=== PATIENT | female | born 1990 | race Caucasian/White ===

== ENCOUNTER 2020-08-26 09:38 | Emergency (ER) | payer OTHER, SELFPAY ==
[2020-08-26] VITALS (7 sets, daily range): BP systolic 100–144; BP diastolic 63–106; PULSE 60–94; RESP 16–24; TEMP 36.4; O2SAT 89–99
--- NOTE | ~2020-08-26 | XR_ITS ---
EXAMINATION: XR chest 2V DATE: 08/26/2020 10:44 INDICATION: Chest pain. Lower limb edema. TECHNIQUE: PA and lateral views of the chest were obtained. COMPARISON: Chest radiograph dated 09/26/2016 FINDINGS: The lungs remain clear with no focal airspace opacities, pulmonary edema, pleural effusion or pneumot horax. The cardiomediastinal silhouette is normal. Mild thoracic spondylosis. Chronic mild anterior w edging of a lower thoracic vertebral body. IMPRESSION: 1. No acute cardiopulmonary disease. Reviewed, dictated and finalized at location B. F MEDICAL OFFICER
--- NOTE | 2020-08-26 10:18 | ECG_ITS ---
Measurements Intervals [place] Rate: 77 P: 47 CA: 169 QRS: 53 QRSD: 102 T: 64 QT: 357 QTc: 405 Interpretive Statements SINUS RHYTHM WITH SINUS ARRHYTHMIA EARLY PRECORDIAL R/S TRANSITION LOW QRS VOLTAGE IN PRECORDIAL LEADS BASELINE WANDER- II, III BORDERLINE ECG Electronically Signed On 08-26-2020 11:12:51 SURGICAL TECHNOLOGY INSTRUCTOR by Gabriel Garcia D.O.
--- NOTE | 2020-08-26 10:24 | ED.SOB ---
HPI - SOB/Dyspnea General Chief Complaint: Shortness of Breath/Dyspnea Stated Complaint: sob, leg swellling, Time Seen by Provider: 08/26/20 10:06 Source: patient Mode of arrival: ambulatory Limitations: no limitations History of Present Illness HPI Narrative: This is a 30-year-old female that presents to the emergency department for right lower extremity pain and swelling. Reports she has had these symptoms over the last 4 years. Reports she gets frequent migraines. Reports she gets swelling in her face and in her lower extremities. Reports she has a lot of nausea. She gets intermittent sharp chest pains and feels short of breath. Also reports she gets frequent UTIs. She has been seen by specialists for her complaints. Reports she was diagnosed with angioedema. Reports she recently noted swelling and redness of her right lower extremity which prompted her to be seen today. Denies fever. Related Data Allergies Allergy/AdvReac Type Severity Reaction Status Date / Time penicillin G Allergy Mild rash, hives Verified 07/15/17 19:56 Review of Systems Review of Systems: Narrative: CONSTITUTIONAL: Denies fever CARDIOVASCULAR: Reports chest pain, and edema. RESPIRATORY: Reports dyspnea. Denies cough GASTROINTESTINAL: Reports nausea and vomiting. Denies abdominal pain, or diarrhea. GENITOURINARY: Denies dysuria or hematuria. SKIN: Reports erythema MUSCULOSKELETAL: Reports back pain, joint pain, and myalgia. NEUROLOGIC: Reports headache. Denies numbness, or weakness. All systems reviewed & are unremarkable except as noted in HPI and below PMFSH Past Medical History Medical History (Updated 08/26/20 @ 12:26 by Concetta Chavarria PA-C) History of angioedema Social History Social History (Updated 08/26/20 @ 10:28 by Concetta Chavarria PA-C) Smoking status: Current every day smoker Gender identity (if verbalized by the patient): Female Exam Narrative: Exam Narrative: GENERAL: Well-appearing, obese, and in no acute distress. HEAD: Normocephalic, atraumatic. EYES: PERRLA and EOMI. ENT: Nares clear, no rhinorrhea or epistaxis. Mucous membranes moist. Oropharynx without tonsillar hypertrophy exudate or other lesions. Bilateral TMs pearly quintana non-bulging NECK: Supple. No adenopathy or masses. CHEST: Clear to auscultation. No respiratory distress. No wheezes rales or rhonchi HEART: Regular rate and rhythm. No murmur heard. Normal peripheral pulses. ABDOMEN: Soft, nontender, nondistended, normal active bowel sounds. No CVA tenderness BACK: No midline spinal tenderness EXTREMITIES: Normal range of motion. Normal DP pulses. Normal sensation. Right lower extremity with mild edema with small area of erythema on the martinez. Strength equal in bilateral upper and lower extremities (5/5) SKIN: Warm, dry, no rash. NEURO: No focal deficits. Alert and oriented x3. Cranial nerves II through XII grossly intact PSYCH: Normal mood and affect Course Vital Signs Vital signs: Vital Signs Temperature 97.5 F L 08/26/20 09:47 Pulse Rate 94 08/26/20 09:47 Respiratory Rate 18 08/26/20 09:47 Blood Pressure 144/87 H 08/26/20 09:47 Pulse Oximetry 99 08/26/20 09:47 Temperature 97.5 F L 08/26/20 09:47 Pulse Rate 64 08/26/20 11:31 Respiratory Rate 18 08/26/20 11:31 Blood Pressure 111/63 08/26/20 11:31 Pulse Oximetry 97 08/26/20 11:31 MDM - SOB/Dyspnea MDM Narrative Medical decision making narrative: Patient presents to the emergency department with multiple complaints. Reported chest pain, shortness of breath, nausea, and lower extremity edema. All which apparently have been ongoing over the last 4 years. She is afebrile and nontoxic-appearing. Vitals are stable. Blood pressure mildly elevated on arrival, this normalized without intervention. CBC and metabolic panel without concerning findings. BNP is not elevated. Troponin is negative. D-dimer is not elevated. UA with evidence of possible urinary tract inf
[2020-08-26 10:39] LABS: Basophils Absolute Auto 0.1 K/mm3 (0.0-0.1); Basophils Percent Auto 0.9 % (0.2-1.2); Eosinophils Absolute Auto 0.7 K/mm3 (0-0.3); Eosinophils Percent Auto 7.3 % (0-4.4); Hemoglobin 14.2 g/dL (12.0-15.0); Immature Granulocyte Absolute 0.03 K/mm3 (0.00-0.031); Immature Granulocyte Percent A 0.3 % (0-0.5); Lymphocytes Absolute Auto 1.91 K/mm3 (0.9-3.2); Lymphocytes Percent Auto 21.5 % (18.3-44.2); Mean Corpuscular HGB Conc 33.8 g/dl (32-36); Mean Corpuscular Hemoglobin 29.9 pg (26-34); Mean Corpuscular Volume 88.4 fl (80-100); Mean Platelet Volume 9.9 fl (7.4-10.4); Monocytes Absolute Auto 0.6 K/mm3 (0.1-0.6); Monocytes Percent Auto 6.8 % (2.6-8.5); Neutrophils Absolute Auto 5.6 K/mm3 (1.3-6.7); Neutrophils Percent Auto 63.2 % (45.5-73.1); Platelet Count Result 293 k/mm3 (150-375); Red Blood Count 4.75 M/mm3 (4.2-5.4); Red Cell Distribution Width 13.5 % (11.5-14.5); White Blood Count 8.9 K/mm3 (4.5-10.0)
[2020-08-26 10:48] LABS: Prothrombin Time 13.3 Seconds (11.1-14.7)
[2020-08-26 10:49] LABS: Partial Thromboplastin Time 26.6 SECONDS (22.3-36.8)
[2020-08-26 10:51] LABS: D Dimer 0.34 ug/mL (<0.48)
[2020-08-26] MEDS: KETOROLAC 15 MG/ML VIAL (*BKC) IV PUSH (10:53)
[2020-08-26] MEDS: diphenhydrAMINE HCl INJ 50 MG/ML VIAL 25 MG IV PUSH (11:02)
[2020-08-26] MEDS: METOCLOPRAMIDE HCL INJ 10 MG/2 ML VIAL IV PUSH (11:02)
[2020-08-26 11:03] LABS: NT Pro B Type Natriuretic Pept 51 PG/ML (5-100); Troponin I < 0.012 ng/mL (0.000-0.034)
[2020-08-26 11:21] LABS: Alanine Aminotransferase 19 U/L (4-35); Alkaline Phosphatase 70 U/L (38-126); Anion Gap 5 mmol/L (8-16); Aspartate Amino Transferase 24 U/L (14-36); Bilirubin,Total 0.6 mg/dL (0.2-1.3); Blood Urea Nitrogen 22 mg/dL (7-17); CRP 1.4 mg/dL (<1.0); Calcium 8.8 mg/dL (8.4-10.2); Carbon Dioxide 29 mmol/L (22-30); Chloride 103 mmol/L (98-107); Estimated CRCL calculation 134 ml/min; Estimated Glomerular Filt Rate > 60; Glucose 90 mg/dL (65-105); Potassium 4.1 mmol/L (3.4-5.0); Sodium 137 mmol/L (137-145)
[2020-08-26 12:05] LABS: Add Urine Microscopic? YES; Appearance Urine Cloudy (Clear); Bacteria Urine Trace /hpf; Bilirubin Urine Negative (Negative); Blood Urine 1+ (Negative); Color Urine Yellow (Yellow); Glucose Urine UA Negative (Negative); Ketones Urine Negative (Negative); Leukocyte Esterase Ur Trace LEU/UL (Negative); Mucus Urine Few /lpf; Nitrate Urine Positive (Negative); Protein Urine 1+ mg/dL (Negative); RBC Urine 0-2 /hpf (0-2); Specific Grav Ur 1.026 (1.001-1.035); Squamous Epithelial Cell Urine Few /hpf (Few); Urobilinogen Urine Negative mg/dL (<2.0)
--- NOTE | 2020-08-26 12:21 | PC.NURSE ---
Called lab to add UC
== END 2020-08-26 12:45 | disposition home or self-care (01) ==
PROVIDERS: Physician Assistant; Emergency Provider Emergency Medicine; PCP Internal Medicine Gastroenterology
DX: L03.115 Cellulitis of right lower limb (principal); N30.00 Acute cystitis without hematuria; F17.200 Nicotine dependence, unspecified, uncomplicated; R94.31 Abnormal electrocardiogram [ECG] [EKG]
CPT/HCPCS: 36415; 71046; 80053; 81001; 81025; 83880; 84484; 85025; 85380; 85610; 85730; 86140; 87077; 87086; 87088; 87186; 93005; 96374; 96375; 99284; J0131; J1200; J1885; J2765

== ENCOUNTER 2020-11-10 15:16 | Emergency (ER) | payer OTHER, SELFPAY | END 2020-11-10 19:00 | disposition left against medical advice (07) | PROVIDERS: PCP Internal Medicine Gastroenterology | DX: Z53.21 Procedure and treatment not carried out due to patient leaving prior to being seen by health care provider (principal) | CPT/HCPCS: 99199 ==

== ENCOUNTER 2020-11-12 08:20 | Emergency (ER) | payer OTHER, SELFPAY ==
[2020-11-12] VITALS (20 sets, daily range): BP systolic 108–136; BP diastolic 86–98; PULSE 65–104; RESP 13–21; TEMP 36.4; O2SAT 93–99
--- NOTE | ~2020-11-12 | XR_ITS ---
EXAMINATION: XR chest 1V portable EXAM DATE: 11/12/2020 09:29 INDICATION: Shortness of breath with chest pain. TECHNIQUE: Portable AP frontal chest x-ray was obtained. Comparison is made to prior examination from 08/26/2020. FINDINGS: The lungs are clear. There are no pleural effusions. The cardiomediastinal silhouette is within normal limits. There is no pneumothorax suspected. The bones and soft tissues are unremarkab le. IMPRESSION: No acute cardiopulmonary findings. Reviewed, dictated and finalized at location A.
--- NOTE | ~2020-11-12 | CT_ITS ---
EXAMINATION: CTA chest PE protocol EXAM DATE: 11/12/2020 10:43 INDICATION: Chest pain with elevated d-dimer. TECHNIQUE: Spiral CTA of the chest (pulmonary arteries) was performed with 100 cc Omnipaque 350 intr avenous contrast injection. Images were acquired during the pulmonary arterial phase. Coronal maxi mum intensity projection 3D-reconstructions were created by the technologist on dedicated workstation . Axial, coronal and sagittal reformatted images were reviewed. The dose-length product (DLP) for t his examination was 736.040 mGy-cm. The exposure was tailored according to patient size (auto mA ex posure control), and iterative reconstruction (ASIR) was used as additional dose reduction technique. There is no prior study for comparison. FINDINGS: Pulmonary arteries are well opacified and without intraluminal filling defects. No thora cic aortic dissection. There are ill-defined peripheral groundglass opacities, involving both depend ent and nondependent portions of the lower lobes bilaterally. Possible COVID pneumonia. Other acute p ossibilities include influenza, pulmonary edema or hemorrhage. Some chronic processes that can have t his appearance include cryptogenic organizing pneumonia, desquamative interstitial pneumonia, nonspec ific interstitial pneumonia, drug toxicity, connective tissue disease. Please clinically correlate an d test as appropriate. IMPRESSION Patchy bilateral airspace disease suspicious for COVID-19 pneumonia. Clinical correlation . There are no pleural or pericardial effusions. Tracheobronchial tree is patent. There is no me diastinal, hilar or axillary lymphadenopathy. There is no pneumothorax. Heart normal in size. N o evidence of coronary arterial calcification. Upper abdomen is unremarkable. The bones are unrema rkable. IMPRESSION: 1. Lower lobe groundglass opacities, possible COVID pneumonia or other acute or chronic process as a kurt. 2. No pulmonary emboli. Reviewed, dictated and finalized at location A. IMPRESSION Patchy bilateral airspace disease suspicious for COVID-19 pneumonia . Clinical correlation. There are no pleural or pericardial effusions. Trach eobronchial tree is patent. There is no mediastinal, hilar or axillary lympha denopathy. There is no pneumothorax. Heart normal in size. No evidence of coronary arterial calcification. Upper abdomen is unremarkable. The bones a re unremarkable. IMPRESSION: 1. Lower lobe groundglass opacities, possible COVID pneumonia or other acute o r chronic process as above. 2. No pulmonary emboli.
--- NOTE | ~2020-11-12 | US_ITS ---
EXAMINATION: US venous doppler LE RT DATE: 11/12/2020 09:21 INDICATION: Right lower limb swelling. TECHNIQUE: Grayscale ultrasound images without and with compression and Doppler ultrasound images of the right lower extremity veins were obtained. COMPARISON: Ultrasound 09/28/2016 FINDINGS: The visualized portions of right common femoral vein, profunda (deep) femoral vein, femoral vein, pop liteal vein, peroneal veins, posterior tibial veins, and greater saphenous vein outflow are patent. IMPRESSION: 1. No deep venous thrombosis. Reviewed, dictated and finalized at location A.
--- NOTE | 2020-11-12 08:32 | ECG_ITS ---
Measurements Intervals [place] Rate: 99 P: 57 UT: 148 QRS: 52 QRSD: 91 T: 29 QT: 308 QTc: 395 Interpretive Statements SINUS RHYTHM WITH SINUS ARRHYTHMIA BASELINE ARTIFACT- III, AVL, AVF NORMAL ECG Electronically Signed On 11-12-2020 9:32:54 CDT by Gabriel Garcia D.O.
--- NOTE | 2020-11-12 08:34 | ED.GENADULT ---
HPI - General Adult General Chief complaint: Chest Pain Stated complaint: CP Time Seen by Provider: 11/12/20 08:21 Source: patient Mode of arrival: ambulatory Limitations: no limitations History of Present Illness HPI narrative: This is a 30 year old female with history of asthma, anxiety, and angioedema who presents for evaluation of multiple complaints. She reports she developed intermittent sharp left sternal chest pain x 2 days. This pain is nonradiating. She also reports sob, nausea, vomiting, diarrhea. She denies any chest trauma. Her pain is worse with inspiration and walking around. She denies fever, chills, cough. She has right lower extremity swelling for months. She reports she was evaluated in ER at it's onset, and she was diagnosed with cellulitis. She states her PCP thought is was due to her angioedema. Related Data Allergies Allergy/AdvReac Type Severity Reaction Status Date / Time penicillin G Allergy Mild rash, hives Verified 07/15/17 19:56 Review of Systems Review of Systems: All systems reviewed & are unremarkable except as noted in HPI and below Constitutional: Constitutional: Denies chills and Denies fever(s) Cardiovascular: Cardiovascular: Reports chest pain and Denies radiating jaw, neck or arm pain Respiratory: Respiratory: Denies cough and Reports dyspnea Gastrointestinal: Gastrointestinal: Reports abdominal pain, Reports diarrhea, Reports nausea and Reports vomiting Psychiatric: Psychiatric: Reports anxiety PMFSH Past Medical History Medical History (Updated 11/12/20 @ 11:34 by Jessica Medel MD) Anxiety Asthma History of angioedema Surgical History Surgical History (Updated 11/12/20 @ 08:35 by Jessica Medel MD) H/O section Social History Social History (Updated 11/12/20 @ 08:35 by Jessica Medel MD) Smoking status: Current every day smoker Alcohol intake: current Substance use: current Substance use type: marijuana Gender identity (if verbalized by the patient): Female Exam Const: General: no acute distress and alert Orientation/consciousness: patient oriented x3 Eyes: EOM: EOMs intact bilaterally Chest: Chest palpation & inspection: normal inspection of the chest Resp: Effort & Inspection: normal respiratory effort and no retractions Auscultation: clear to auscultation bilaterally Cardio: Rate: regular rate Rhythm: regular rhythm Heart sounds: no murmurs GI: GI Palp: Yes Soft to palpation, Yes Tenderness to palpation present (GI) (epigastric) and No Guarding due to palpation present (GI) Auscultation: normal bowel sounds Back/Spine/Pelvis: Back: no CVA tenderness Skin: General skin exam: normal color Rashes: no rashes Neuro: General: patient oriented x3, moves all extremities and CN's II-XI intact bilaterally Course Reevaluation(s) Reevaluation #1: I discussed with patient that CT scan is concerning for pneumonia and covid. She became upset ripping her wires off. I tried to explain that she will need to be tested for covid again. She states she does not believe in covid and refuses to be tested. 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 She states she does not believe in the vaccine either. Date: 11/12/20 Time: 11:20 Reevaluation #2: Nursing staff reports patient wants to leave [place]. Date: 11/12/20 Time: 11:34 Vital Signs Vital signs: Vital Signs Temperature 97.6 F 11/12/20 08:24 Pulse Rate 99 11/12/20 08:24 Respiratory Rate 20 11/12/20 08:24 Blood Pressure 116/86 11/12/20 08:24 Pulse Oximetry 94 11/12/20 08:24 Temperature 97.6 F 11/12/20 08:24 Pulse Rate 75 11/12/20 11:19 Respiratory Rate 14 11/12/20 11:19 Blood Pressure 132/88 11/12/20 11:19 Pulse Oximetry 98 11/12/20 11:19 Medical Decision Making Vital Signs Vital Signs: Vital Signs Temperature 97.6 F 11/12/20 08:24 Pulse Rate 99 11/12/20 08:24 Respiratory Rate
[2020-11-12 08:53] LABS: Basophils Percent Auto 0.4 % (0.2-1.2); Eosinophils Absolute Auto 0.2 K/mm3 (0-0.3); Eosinophils Percent Auto 2.2 % (0-4.4); Hematocrit 42.9 % (37.0-47.0); Hemoglobin 14.6 g/dL (12.0-15.0); Immature Granulocyte Absolute 0.02 K/mm3 (0.00-0.031); Immature Granulocyte Percent A 0.2 % (0-0.5); Lymphocytes Absolute Auto 1.14 K/mm3 (0.9-3.2); Lymphocytes Percent Auto 11.9 % (18.3-44.2); Mean Corpuscular Hemoglobin 30.2 pg (26-34); Mean Corpuscular Volume 88.8 fl (80-100); Monocytes Absolute Auto 0.6 K/mm3 (0.1-0.6); Monocytes Percent Auto 5.9 % (2.6-8.5); Neutrophils Absolute Auto 7.6 K/mm3 (1.3-6.7); Neutrophils Percent Auto 79.4 % (45.5-73.1); Platelet Count Result 296 k/mm3 (150-375); Red Blood Count 4.83 M/mm3 (4.2-5.4); Red Cell Distribution Width 13.6 % (11.5-14.5); White Blood Count 9.6 K/mm3 (4.5-10.0)
[2020-11-12] MEDS: PANTOPRAZOLE SODIUM IV 40 MG VIAL IV PUSH (08:55)
[2020-11-12] MEDS: ONDANSETRON INJ 4 MG/2 ML VIAL IV PUSH (08:55)
[2020-11-12] MEDS: ASPIRIN 81 MG CHEWABLE TABLET 324 MG PO (08:55)
[2020-11-12 09:01] LABS: INR 0.9; Partial Thromboplastin Time 24.9 SECONDS (22.3-36.8)
[2020-11-12 09:02] LABS: Alanine Aminotransferase 15 U/L (4-35); Alkaline Phosphatase 70 U/L (38-126); Aspartate Amino Transferase 19 U/L (14-36); Bilirubin,Total 0.4 mg/dL (0.2-1.3); Lipase 50 U/L (23-300)
[2020-11-12 09:04] LABS: D Dimer 2.37 ug/mL (<0.48)
[2020-11-12 09:05] LABS: Add Urine Microscopic? YES; Appearance Urine Cloudy (Clear); Bacteria Urine 1+ /hpf; Bilirubin Urine Negative (Negative); Blood Urine 3+ (Negative); Color Urine Yellow (Yellow); Glucose Urine UA Negative (Negative); Ketones Urine Negative (Negative); Leukocyte Esterase Ur 2+ LEU/UL (Negative); Mucus Urine Heavy /lpf; Nitrate Urine Negative (Negative); Protein Urine 2+ mg/dL (Negative); Specific Grav Ur 1.028 (1.001-1.035); Squamous Epithelial Cell Urine Many /hpf (Few); Urobilinogen Urine Negative mg/dL (<2.0); WBC Urine 31-50 /hpf
[2020-11-12 09:07] LABS: Anion Gap 7 mmol/L (8-16); Blood Urea Nitrogen 25 mg/dL (7-17); Calcium 8.7 mg/dL (8.4-10.2); Carbon Dioxide 24 mmol/L (22-30); Chloride 108 mmol/L (98-107); Estimated CRCL calculation 103 ml/min; Estimated Glomerular Filt Rate > 60; Glucose 106 mg/dL (65-105); Potassium 3.7 mmol/L (3.4-5.0); Sodium 139 mmol/L (137-145)
[2020-11-12 09:18] LABS: Troponin I < 0.012 ng/mL (0.000-0.034)
--- NOTE | 2020-11-12 11:24 | PC.NURSE ---
Pt refusing to be COVID or influenze tested stating that I dont believe I have COVID I just have pneumonia. Everything is COVID these days, you can come in with a toothache and they tell you its COVID. Pt states that she doesnt believe her test results, doesnt understand why the tests she had were done and wants to leave AMA. RN explained to patient her lab results and elevated d-dimer which means she is high likely for a blood clot. This was the reason she got a chest CT which found her pneumonia that the radiologist read as suspicious for COVID 19. HEDY Medel notified.
== END 2020-11-12 11:43 | disposition left against medical advice (07) ==
PROVIDERS: Emergency Provider General Practice; PCP Internal Medicine Gastroenterology
DX: J18.9 Pneumonia, unspecified organism (principal); R07.89 Other chest pain; Z20.822 Contact with and (suspected) exposure to COVID-19; J45.909 Unspecified asthma, uncomplicated; F17.200 Nicotine dependence, unspecified, uncomplicated
CPT/HCPCS: 36415; 71045; 71275; 80048; 80076; 81001; 81025; 83690; 84484; 85025; 85380; 85610; 85730; 87077; 87086; 87088; 87186; 93005; 93971; 96374; 96375; 99284; A9270; C9113; J2405; Q9967

== ENCOUNTER 2022-07-05 01:50 | Emergency (ER) | payer OTHER, SELFPAY ==
[2022-07-05 01:55] VITALS: BP 134/84; PULSE 72; RESP 16; TEMP 36.3; O2SAT 100
--- NOTE | 2022-07-05 02:59 | ED.DENTAL ---
HPI - Dental/Oral General Chief complaint: Dental/Oral Stated complaint: dental pain Time Seen by Provider: 07/05/22 02:11 Source: patient Mode of arrival: ambulatory Limitations: no limitations History of Present Illness HPI Narrative: 32-year-old female presents today with complaints of right upper tooth pain that she noted about 2 days ago. Patient states the pain is worse today. Patient says she has intermittently had issues with this tooth but recently had it cleaned at the pain today was so severe that she cannot take anymore. Patient denies any drainage. 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 Patient was seen at [facility] for this. Patient currently states the swelling to the right side of her face is minimal and is getting better. MD Complaint: tooth pain Teeth map: 1. Tenderness with palpation, no drainage noted, no abscess, no fluctuant area, erythema noted to the gums. Related Data Allergies Allergy/AdvReac Type Severity Reaction Status Date / Time No Known Allergies Allergy Verified 07/05/22 01:58 Review of Systems Review of Systems: CONSTITUTIONAL: Denies fever, chills, or sweats. EYES: Denies visual changes, redness, or discharge. ENT: Right upper tooth pain. Denies rhinorrhea, congestion, sore throat, or otalgia. CARDIOVASCULAR: Denies chest pain, palpitations, or edema. RESPIRATORY: Denies cough or dyspnea. GASTROINTESTINAL: Denies abdominal pain, nausea, vomiting, or diarrhea. GENITOURINARY: Denies dysuria or hematuria. SKIN: Denies rash or itching. MUSCULOSKELETAL: Denies back pain, joint pain, or myalgia. NEUROLOGIC: Denies headache, numbness, dizziness, or weakness. PSYCHIATRIC: Denies anxiety or depression. [facility] Past Medical History Medical History Anxiety Asthma History of angioedema Surgical History Surgical History H/O section Social History Social History Smoking status: Current every day smoker Alcohol intake: current Substance use: current Substance use type: marijuana Gender identity (if verbalized by the patient): Female Exam Narrative: GENERAL: Well-appearing, well-nourished, and in no acute distress. HEAD: Normocephalic, atraumatic. EYES: PERRLA and EOMI. ENT: See HPI note. Nares clear, no rhinorrhea or epistaxis. Mucous membranes moist. Oropharynx without tonsillar hypertrophy exudate or other lesions. Bilateral TMs pearly quintana nonbulging NECK: Supple. No adenopathy or masses. No carotid bruits or JVD CHEST: Clear to auscultation. No respiratory distress. No wheezes rales or rhonchi HEART: Regular rate and rhythm. No murmur heard. Normal peripheral pulses. Course Vital Signs Vital signs: Vital Signs Temperature 97.3 F L 07/05/22 01:55 Pulse Rate 72 07/05/22 01:55 Respiratory Rate 16 07/05/22 01:55 Blood Pressure 134/84 07/05/22 01:55 Pulse Oximetry 100 07/05/22 01:55 Oxygen Delivery Room Air 07/05/22 01:55 Temperature 97.3 F L 07/05/22 01:55 Pulse Rate 72 07/05/22 01:55 Respiratory Rate 16 07/05/22 01:55 Blood Pressure 134/84 07/05/22 01:55 Pulse Oximetry 100 07/05/22 01:55 Oxygen Delivery Room Air 07/05/22 01:55 MDM - Dental/Oral Differential Diagnosis Differential diagnosis: Likely gingival abscess, dental caries, toothache, dental abscess and fracture of tooth Medical Records Attestation: I reviewed the patient's medical records. Discharge Plan Discharge Clinical Impression: Toothache Patient Disposition: Home, Self-Care Condition: Stable Instructions: Antibiotic Form, Toothache (ED) Additional Instructions: Please take antibiotics as prescribed. Tylenol or ibuprofen as needed for pain or fever. Make sure you take them with food. Return with any new or worsening con
[2022-07-05] MEDS: FAMOTIDINE 20 MG TABLET PO (03:19)
[2022-07-05] MEDS: HYDROcodone/acetaminophen (*CRX) 5-325 MG TABLET 1 TAB PO (03:19)
[2022-07-05] MEDS: AMOXICILLIN/CLAVULANATE K 875-125 MG TAB 1 TABLET PO (03:19)
[2022-07-05] MEDS: ONDANSETRON HCL ODT 4 MG TABLET PO (03:19)
== END 2022-07-05 03:33 | disposition home or self-care (01) ==
PROVIDERS: Emergency Provider Nurse Practitioner Family; PCP Internal Medicine Gastroenterology
DX: K08.89 Other specified disorders of teeth and supporting structures (principal); J45.909 Unspecified asthma, uncomplicated; F17.200 Nicotine dependence, unspecified, uncomplicated
CPT/HCPCS: 99283; A9270

== ENCOUNTER 2025-01-05 06:02 | Emergency (ER) | payer OTHER, SELFPAY ==
--- NOTE | ~2025-01-05 | XR_ITS ---
Clinical Indication: Shortness of breath PA and lateral views of the chest: Comparison: 11/12/2020 Findings: The lungs are clear, without evidence of focal consolidation or pleural effusion. Cardiome diastinal silhouette is within normal limits. Bones and soft tissues are unremarkable. Impression: Normal chest. Reviewed, dictated and finalized at location . Impression: Normal chest.
--- OUTSIDE RECORDS SUMMARY | 2025-01-05 06:05 | XMS_ITS | Data Portability ---
Author Organization [facility] MARGIEMady Sanonia Cirilo Address [address] [place] [address] Care Team Providers Care Haulage Boss Name Role Phone FRANK GOMEZ Primary Care Provider Unavailabl e Assessment Encounter Date Assessment Date Assessment LastModified by Organization Details LastModified Time 03/04/2021 03/04/2021 Chase CHOWDARY mwasserman Not available 03/04/2021 00:47:30 09/24/2021 09/24/2021 EPI Mayorga Not available 09/24/2021 16:50:48 Plan of Treatment Reminders Order Date Submit Date Provider Last Modified By Organization Details Last Modified Time Details Appointments None recorded . Lab pregnanc y test, urine 2021 022 In-Office Order, Internal Use Only DO Not Attach Compendium DO Not Attach Compendium, Do Not Delete/merge, [id number] 15:41:03 HCG, intact + beta subunit, quant, serum or plasma 2021 022 [facility] (Centralized Electronic Ordering - All Locations), Patient Can Go To The Location Of Their Choice, [id number] 08:14:29 progeste adrian, serum 2021 022 [facility] (Centralized Electronic Ordering - All Locations), Patient Can Go To The Location Of Their Choice, [address] 08:14:29 urinalys is, dipstick 2021 022 In-Office Order, Internal Use Only DO Not Attach Compendium DO Not Attach Compendium, Do Not Delete/merge, [id number] 2 15:41:03 culture, urine 2021 022 LENI [facility] (Centralized Electronic Ordering - All Locations), Patient Can Go To The Location Of Their Choice, 2 06:12:28 vaginal pathogen s panel, DILLON+prob e, vaginal fluid 2021 022 LENI [facility] (Centralized Electronic Ordering - All Locations), Patient Can Go To The Location Of Their Choice, 2 03:10:40 culture, wound 2020 021 LENI [facility] (Centralized Electronic Ordering - All Locations), Patient Can Go To The Location Of Their Choice, 16:11:38 culture, urine 2020 021 L[facility] (Centralized Electronic Ordering - All Locations), Patient Can Go To The Location Of Their Choice, 16:11:40 urinalys is, dipstick 2020 021 padminiassaline In-Office Order, Internal Use Only DO Not Attach Compendium DO Not Attach Compendium, Do Not Delete/merge, [id number] 16:04:02 unlisted lab - igp,apti ma HPV,age gdln 2020 021 LENI [facility], 2022 Anna Swan, [address], [address], 11:37:49 bacteria l vaginosi s panel, vaginal 2020 021 LENI [facility] (Centralized Electronic Ordering - All Locations), Patient Can Go To The Location Of Their Choice, 16:11:36 vitamin B12 + folate, serum or blood 2019 020 [facility] (Centralized Electronic Ordering - All Locations), Patient Can Go To The Location Of Their Choice, 0 12:08:42 unlisted lab - vitamin D, 25-hydro xy 2019 [place] [facility] (Centralized Electronic Ordering - All Locations), Patient Can Go To The Location Of Their Choice, [address] 0 12:08:42 TSH + free T4, serum 2019 [place] [facility] (Centralized Electronic Ordering - All Locations), Patient Can Go To The Location Of Their Choice, [address] 0 12:08:42 T3, free, serum or plasma 2019 020 [place] [facility] (Centralized Electronic Ordering - All Locations), Patient Can Go To The Location Of Their Choice, [address] 0 12:08:41 HbA1c (hemoglo bin A1c), blood 2019 [facility] (Centralized Electronic Ordering - All Locations), Patient Can Go To The Location Of Their Choice, [address] 0 09:43:09 CMP, serum or plasma 2019 020 [facility] (Centralized [facility] Ordering - All Locations), Patient Can Go To The Location Of Their Choice, [address] 0 09:43:10 Referral None recorded . Procedures None recorded . Surgeries None recorded . Imaging None recorded . Medication Orders 28 mg iron-800 mcg tablet 2021 [id number], [address], [place], [address], 15:41:03 Bactrim DS 800 mg-160 mg tablet 2021 [id number], [address], [place], [address], 14:57:29 albutero l sulfate HFA 90 mcg/actu ation aerosol inhaler 2021 [facility][id number], [address], [place], [address], 02/25/202 2 12:12:58 metformi n ER 500 mg tablet,e xtended release 24 hr 2021 022 [id number] [address] [place], [address], 2 15:44:38 cephalex in 500 mg capsule 2020 [facility]21 [id number] [address] [place], [address], 2 10:53:07 multivit silvestre tablet 2020 022 [id number], [address] [place], [address], 2 10:53:49 Calcium with Vitamin D 600 mg-10 mcg (400 unit) tablet 2020 022 [id number], [address] [place], [address], 2 10:53:06 EpiPen 2-Sonny 0.3 mg/0.3 mL injectio n, auto-inj denny 2020 021 [id number], [address] [place], [address], 1 14:12:46 hydroxyz ine HCl 25 mg tablet 2020 021 [id number], [address] [place], [address], 2 10:53:24 butalbit al-aceta minophen -caffein e 50 mg-325 mg-40 mg tablet 2020 021 [id number], [address] [place], [address], 2 10:52:59 clindamy mati HCl 300 mg capsule 2020 021 [facility] #[id number], [address] [place], [address], 1 15:32:43 monteluk ast 10 mg tablet 2019 020 [facility] #[id number], [address] [place], [address], 2 10:53:40 omeprazo le 20 mg capsule, delayed release 2019 020 [facility] #[id number], [address] [place], [address], 2 15:44:43 albutero l sulfate 2.5 mg/3 mL (0.083 %) solution for nebuliza tion 2019 020 [facility] #[id number], [address] [place], [address], 0 12:02:44 ProAir HFA 90 mcg/actu ation aerosol inhaler 2019 020 [facility] #[id number], [address] [place], [address], 0 12:02:43 topirama te 50 mg tablet 2019 020 [facility] #94092, [address] [place], [address], 2 10:54:17 sumatrip pavon 100 mg tablet 2019 020 [facility]acy #[id number], [address] [place], [address], 1 15:34:02 Patient TargetsNo targets recorded. Patient Instructions Encounter Date Encounter Id Patient Instructions Last Modified By Organization Details Last Modified Time 03/04/2021 [id number] skin abscess: care instructions Not available 03/04/2021 16:32:45 A healthy lifestyle: care instructions Not available 03/04/2021 16:18:03 Urinary Tract Infection (UTI) in Women: Care Instructions mwasserman Not available 03/04/2021 16:04:02 Well Visit, Ages 18 to 65: Care Instructions Not available 03/04/2021 16:04:13 07/28/2022 [id number] A healthy lifestyle: care instructions Not available 07/28/2022 15:41:03 weeks 6 to 10 of your : care instructions Not available 07/28/2022 15:41:03 managing morning sickness: care instructions Not available 07/28/2022 15:41:03 nutrition during : care instructions Not available 07/28/2022 15:41:03 precautions: care instructions Not available 07/28/2022 15:41:03 exercise during : care instructions Not available 07/28/2022 15:41:04 Reason for Referral None Reported. Results Created Date Observation Date Name Description Value Unit Range Abnormal Flag Note LastModifiedBy Organization Detail LastModifiedTime 03/04/2003/04/2021 urina lysis , dipst ick Leukocytes Trace Not Available In-Offi ce Order Internal Use Only DO Not Attach Compendium DO Not Attach Compendium, Do Not Delete/merge, [id number] 03/04/2021 00:47:09 03/04/2003/04/2021 urina lysis , dipst ick Nitrite positi ve Not Available In-Office Order Internal Use Only DO Not Attach Compendium DO Not Attach Compendium, Do Not Delete/merge, [id number] 03/04/2021 00:47:09 03/04/2003/04/2021 urina lysis , dipst ick Urobilinogen .2 Not Available In-Of fice Order Internal Use Only DO Not Attach Compendium DO Not Attach Compendium, Do Not Delete/merge, [id number] 03/04/2021 00:47:09 03/04/20 21 03/04/2021 urina lysis , dipst ick Protein Negati ve Not Available In-Office Order Internal Use Only DO Not Attach Compendium DO Not Attach Compendium, Do Not Delete/merge, 03/04/2021 00:47:09 03/04/20 21 03/04/2021 urina lysis , dipst ick pH 5.5 Not Available In-Office Order Internal Use Only DO Not Attach Compendium DO Not Attach Compendium, Do Not Delete/merge, 03/04/2021 00:47:09 03/04/20 21 03/04/2021 urina lysis , dipst ick Blood Small Not Available In-Office Order Internal Use Only DO Not Attach Compendium DO Not Attach Compendium, Do Not Delete/merge, 03/04/2021 00:47:03/04/20 21 03/04/2021 urina lysis , dipst ick Specific [place] 1.030 Not Available In-Off ice Order Internal Use Only DO Not Attach Compendium DO Not Attach Compendium, Do Not Delete/merge, 03/04/2021 00:47:09 03/04/20 21 03/04/2021 urina lysis , dipst ick Ketone Negati ve Not Available In-Office Order Internal Use Only DO Not Attach Compendium DO Not Attach Compendium, Do Not Delete/merge, 03/04/2021 00:47:09 03/04/20 21 03/04/2021 urina lysis , dipst ick Bilirubin Negati ve Not Available In-Office Order Internal Use Only DO Not Attach Compendium DO Not Attach Compendium, Do Not Delete/merge, 03/04/2021 00:47:09 03/04/20 21 03/04/2021 urina lysis , dipst ick Glucose Negati ve Not Available In-Office Order Internal Use Only DO Not Attach Compendium DO Not Attach Compendium, Do Not Delete/merge, 03/04/2021 00:47:09 03/04/20 21 03/08/2021 IGP,A PTIMA HPV,A GE GDLN age gdln acog testing 30-65 Not Available [facility]) [address] [facility] [address], [place], [address], 03/09/2021 11:37:48 03/04/20 21 03/09/2021 IGP,A PTIMA HPV,A GE GDLN diagnosis: Arielle hall NEGAT ADRIEN FOR INTRA EPITH ELIAL LESIO N OR MALIG MIL . TRICH OMONA S VAGIN RAJI IS PRESE NT. CELLU TERESA HOUGH ES ASSOC IATED WITH INFLA MMATI ON ARE PRESE NT. Not Available [facility] ([facility]) [address] [facility] [address], [place], [address], 03/09/2021 11:37:48 03/04/20 21 03/09/2021 IGP,A PTIMA HPV,A GE GDLN specimen adequacy: Arielle hall Satis facto ry for evalu ation . No endoc ervic al compo nent is ident ified . Not Available [facility] ([facility]) [address] [facility] [address], [place], [address], 03/09/2021 11:37:48 03/04/20 21 03/09/2021 IGP,A PTIMA HPV,A GE GDLN clinician provided ICD10: Arielle hall N39.0 Z01.4 19 Z11.3 N76.4 Not Available [facility] ([facility]) [address] [place], [address], 03/09/2021 11:37:48 03/04/20 21 03/09/2021 IGP,A PTIMA HPV,A GE GDLN performed by: Arielle tello, Cytot glenis dai t (ASCP ) Not Available [facility] ([facility]) [address] [place], [address], 03/09/2021 11:37:48 03/04/20 21 03/09/2021 IGP,A PTIMA HPV,A GE GDLN . . Not Available [facility] ([facility]) [address] [place], [address], 03/09/2021 11:37:48 03/04/20 21 03/09/2021 IGP,A PTIMA HPV,A GE GDLN note: Commen t The Pap smear is a scree jennifer test desig kayden to aid in the detec tion of raúl ligna nt and malig nant condi tions of the uteri ne cervi x. It is not a diagn ostic proce dure and shoul d not be used as the sole means of detec ting cervi thiago cance r. Both false -posi tive and false -nega tive repor ts do occur . Not Available [facility] ([facility]) [address] [place], [address], 03/09/2021 11:37:48 03/04/20 21 03/09/2021 IGP,A PTIMA HPV,A GE GDLN test methodology: Arielle t This liqui d based ThinP rep(R ) pap test was scree kayden with the use of an image guide d systmata m. Not Available [facility] ([facility]) [address] [place], [address], 03/09/2021 11:37:48 03/04/20 21 03/09/2021 IGP,A PTIMA HPV,A GE GDLN HPV aptima Negati ve negati ve This nucle ic acid ampli ficat ion test detec ts fourt een high- risk HPV types (16,1 8,31, 33,35 ,39,4 5,51, 52,56 ,58,5 9,66, 68) witho ut diffe renti ation . Not Available [facility] ([facility]) [address] [place], [address], 03/09/2021 11:37:48 03/04/20 21 03/08/2021 NUSWA B VG+, HSV atopobium vaginae High - 2 score abnormal Not Available [facility] ([facility]) [address] [place], [address], 03/10/2021 16:11:36 03/04/20 21 03/08/2021 NUA B VG+, HSV bvab 2 High - 2 score abnormal Not Available [facility] ([facility]) [address] [facility] [address], [place], [address], 03/10/2021 16:11:36 03/04/20 21 03/08/2021 NUSWA B VG+, HSV megasphaera 1 High - 2 score abnormal Calcu late total score by gabriel g the 3 indiv idual bacte rial vagin osis (BV) marke r score s toget her. Total score is inter prete d as follo ws: Total score 0-1: Indic ates the absen ce of BV. Total score 2: Indet ermin ate for BV. Addit ional clini thiago data shoul d be evalu ated to estab doug a diagn osis. Total score 3-6: Indic ates the prese nce of BV. This test was devel oped and its perfo rmanc e naomy cteri stics deter mined by [facility]. It has not been clear ed or appro adriel by the Food and Drug Admin istra tion. Not Available [facility] ([facility]) [address] [facility] [address], [place], [address], 03/10/2021 16:11:36 03/04/20 21 03/08/2021 NUA B VG+, HSV lorin albicans, DILLON Negati ve negati ve Not Available [facility] ([facility]) [address] [facility] [address], [place], [address], 03/10/2021 16:11:36 03/04/20 21 03/08/2021 NUA B VG+, HSV lorin glabrata, DILLON Negati ve negati ve Not Available [facility] ([facility]) [address] [facility] [address], [place], [address], 03/10/2021 16:11:36 03/04/20 21 03/09/2021 NUSWA B VG+, HSV trich vag by DILLON Positi ve negati ve abnormal Not Available [facility] ([facility]) [address] [place], [address], 03/10/2021 16:11:36 03/04/20 21 03/09/2021 NUSWA B VG+, HSV chlamydia trachomatis, DILLON Negati ve negati ve Not Available [facility] ([facility]) [address] [place], [address], 03/10/2021 16:11:36 03/04/20 21 03/09/2021 NUSWA B VG+, HSV neisseria gonorrhoeae, DILLON Negati ve negati ve Not Available [facility] ([facility]) [address] [place], [address], 03/10/2021 16:11:36 03/04/20 21 03/09/2021 NUA B VG+, HSV hsv 1 DILLON Negati ve negati ve Not Available [facility] ([facility]) [address] [place], [address], 03/10/2021 16:11:36 03/04/20 21 03/09/2021 NUSWA B VG+, HSV hsv 2 DILLON Negati ve negati ve Not Available [facility] ([facility]) [address] [place], [address], 03/10/2021 16:11:36 03/04/20 21 03/09/2021 ANAER OBIC AND AEROB IC CULTU RE anaerobic culture Final report Not Available [facility] ([facility]) [address] [place], [address], 03/10/2021 16:11:38 03/04/20 21 03/09/2021 ANAER OBIC AND AEROB IC CULTU RE result 1 Commen t No anaer obic growt h in 72 hours . Not Available [facility] ([facility]) [address] [place], [address], 03/10/2021 16:11:38 03/04/20 21 03/10/2021 ANAER OBIC AND AEROB IC CULTU RE aerobic culture Final report abnormal Not Available [facility] ([facility]) [address] [facility] [address], [place], [address], 03/10/2021 16:11:38 03/04/20 21 03/10/2021 ANAER OBIC AND AEROB IC CULTU RE result 1 Escher ichia coli abnormal Heavy growt h Not Available [facility] ([facility]) [address] [facility] [address], [place], [address], 03/10/2021 16:11:38 03/04/20 21 03/10/2021 ANAER OBIC AND AEROB IC CULTU RE antimicrobia l susceptibili ty Commen t S = Susce ptibl e; I = Inter media te; R = Resis tant P = Posit adrien; N = Negat adrien MICS are expre ssed in micro grams per mL Antib iotic RSLT# 1 RSLT# 2 RSLT# 3 RSLT# 4 Amoxi cilli n/Cla vulan ic Acid S Ampic illin R Cefep ana cristina S Ceftr iaxon e S Cefur oxime S Cipro floxa mati S Ertap enem S Genta micin S Imipe nem S Levof loxac in S Merop enem S Piper acill in/Ta zobac neri S Tetra cycli ne S Tobra mycin S Trime thopr im/Cohen lfa S Not Available [facility] ([facility]) [address] [facility], [place], [address], 03/10/2021 16:11:38 03/04/20 21 03/09/2021 URINE CULTU RE, HAILEY GARCIA urine culture, routine Final report abnormal Not Available [facility] ([facility]) [address] [facility], [place], [address], 03/10/2021 16:11:40 03/04/20 21 03/09/2021 URINE CULTU RE, ROUTI NE result 1 Citrob acter koseri abnormal Great er than 100,0 00 colon y formi ng units per mL Not Available [facility] ([facility]) [address] [place], [address], 03/10/2021 16:11:40 03/04/20 21 03/09/2021 URINE CULTU RE, ROUTI NE antimicrobia l susceptibili ty Commen t S = Susce ptibl e; I = Inter media te; R = Resis tant P = Posit adrien; N = Negat adrien MICS are expre ssed in micro grams per mL Antib iotic RSLT# 1 RSLT# 2 RSLT# 3 RSLT# 4 Amoxi cilli n/Cla vulan ic Acid S Cefep ana cristina S Ceftr iaxon e S Cefur oxime I Cipro floxa mati S Ertap enem S Genta micin S Imipe nem S Levof loxac in S Merop enem S Nitro furan toin S Piper acill in/Ta zobac neri S Tetra cycli ne S Tobra mycin S Trime thopr im/Cohen lfa S Not Available [facility] ([facility]) [address] [place], [address], 03/10/2021 16:11:40 09/24/19 22 09/28/2021 CT, NG, TRICH VAG BY DILLON chlamydia by DILLON Negati ve negati ve Not Available [facility] ([facility]) [address] [place], [address], 09/28/2021 03:10:40 09/24/19 22 09/28/2021 CT, NG, TRICH VAG BY DILLON gonococcus by DILLON Negati ve negati ve Not Available [facility] ([facility]) [address] [place], [address], 09/28/2021 03:10:40 09/24/19 22 09/28/2021 CT, NG, TRICH VAG BY DILLON trich vag by DILLON Negati ve negati ve Not Available [facility] ([facility]) [address] [place], [address], 09/28/2021 03:10:40 07/28/20 22 07/29/2022 PROGE STERO NE progesterone 7.7 NG/mL Folli cular phase 0.1 - 0.9 Lutea l phase 1.8 - 23.9 Ovula tion phase 0.1 - 12.0 Pregn ant First trime ster 11.0 - 44.3 Secon d trime ster 25.4 - 83.3 Third trime ster 58.7 - 214.0 Postm enopa usal 0.0 - 0.1 Not Available [facility] ([facility]) [address] [place], [address], 07/29/2022 08:14:29 07/28/20 22 07/29/2022 HCG,B ETA SUBUN IT, QNT HCG,beta subunit,qnt, serum 2045 mIU/m L Femal e (Non- pregn ant) 0 - 5 (Post menop ausal ) 0 - 8 Femal e (Preg nant) Weeks of Gesta tion 3 6 - 71 4 10 - 750 5 217 - 9538 6 158 - 26633 7 0312 -1537 63 8 11589 -9268 71 9 79878 -1514 10 10 37094 -1869 77 12 66111 -2106 12 14 46664 - 30968 15 39220 - 45439 16 4917 - 44714 17 1203 - 40789 18 7573 - 09068 Louann ECLIA metho dolog y Not Available [facility] ([facility]) [address] [facility], [place], [address], 07/29/2022 08:14:29 07/28/20 22 07/30/2022 URINE CULTU REHAILEY NE urine culture, routine Final report Not Available [facility] ([facility]) [address] [place], [address], 07/30/2022 06:12:28 07/28/2007/30/2022 URINE CULTU RE, ROUTI NE result 1 Commen t Mixed uroge nital batsheva 25,00 0-50, 000 colon y formi ng units per mL Not Available [facility] ([facility]) [address] [facility] [address], [place], [address], 07/30/2022 06:12:28 07/28/20 22 07/28/2022 urina lysis , dipst ick Leukocytes Small Not Available In-Offi ce Order Internal Use Only DO Not Attach Compendium DO Not Attach Compendium, Do Not Delete/merge, [id number] 07/28/2022 15:11:31 07/28/20 22 07/28/2022 urina lysis , dipst ick Nitrite negati ve Not Available In-Office Order Internal Use Only DO Not Attach Compendium DO Not Attach Compendium, Do Not Delete/merge, [id number] 07/28/2022 15:11:31 07/28/20 22 07/28/2022 urina lysis , dipst ick Urobilinogen .2 Not Available In-Of fice Order Internal Use Only DO Not Attach Compendium DO Not Attach Compendium, Do Not Delete/merge, [id number] 07/28/2022 15:11:31 07/28/20 22 07/28/2022 urina lysis , dipst ick Protein 30 Not Available In-Office Order Internal Use Only DO Not Attach Compendium DO Not Attach Compendium, Do Not Delete/merge, [id number] 07/28/2022 15:11:31 07/28/20 22 07/28/2022 urina lysis , dipst ick pH 6.5 Not Available In-Office Order Internal Use Only DO Not Attach Compendium DO Not Attach Compendium, Do Not Delete/merge, [id number] 07/28/2022 15:11:31 07/28/20 22 07/28/2022 urina lysis , dipst ick Blood Negati ve Not Available In-Office Order Internal Use Only DO Not Attach Compendium DO Not Attach Compendium, Do Not Delete/merge, [id number] 07/28/2022 15:11:31 07/28/20 22 07/28/2022 urina lysis , dipst ick Specific [place] 1.030 Not Available In-Off ice Order Internal Use Only DO Not Attach Compendium DO Not Attach Compendium, Do Not Delete/merge, [id number] 07/28/2022 15:11:31 07/28/20 22 07/28/2022 urina lysis , dipst ick Ketone Negati ve Not Available In-Office Order Internal Use Only DO Not Attach Compendium DO Not Attach Compendium, Do Not Delete/merge, [id number] 07/28/2022 15:11:31 07/28/20 22 07/28/2022 urina lysis , dipst ick Bilirubin Negati ve Not Available In-Office Order Internal Use Only DO Not Attach Compendium DO Not Attach Compendium, Do Not Delete/merge, [id number] 07/28/2022 15:11:31 07/28/20 22 07/28/2022 urina lysis , dipst ick Glucose Negati ve Not Available In-Office Order Internal Use Only DO Not Attach Compendium DO Not Attach Compendium, Do Not Delete/merge, [id number] 07/28/2022 15:11:31 07/28/20 22 07/28/2022 urina lysis , dipst ick Appearance Clear Not Available In-Offi ce Order Internal Use Only DO Not Attach Compendium DO Not Attach Compendium, Do Not Delete/merge, [id number] 07/28/2022 15:11:31 07/28/20 22 07/28/2022 urina lysis , dipst ick Color Dark Yellow Not Available In-Office Order Internal Use Only DO Not Attach Compendium DO Not Attach Compendium, Do Not Delete/merge, [id number] 07/28/2022 15:11:31 07/28/20 22 07/28/2022 pregn winnie test, urine HCG positi ve Not Available In-Office Order Internal Use Only DO Not Attach Compendium DO Not Attach Compendium, Do Not Delete/merge, [id number] 07/28/2022 15:11:17 01/04/20 25 01/03/2025 Tropo ileana I.car diac [Mass /volu me] in Serum or Plasm a by Detec tion limit <= 0.01 ng/mL troponin I.cardiac [mass/volume ] in serum or plasma by detection limit <= 0.01 NG/mL <0.012 low: 0NG/mL high: 0.034N G/mL normal Not Available Not Available 01/03/2025 04:17:56 01/04/20 25 01/03/2025 Magne sium [Mass /volu me] in Serum or Plasm a magnesium [mass/volume ] in serum or plasma 2 mg/dL low: 1.6mg/ dLhigh : 2.3mg/ dL normal Not Available Not Available 01/03/2025 04:17:56 01/04/20 25 01/03/2025 [facility] [place] [facility] [employer] 1999 panel - Serum or Plasm a sodium [moles/volum e] in blood 138 mmol/ L low: 137mmo l/Lhig h: 145mmo l/L normal Not Available Not Available 01/03/2025 04:17:56 01/04/20 25 01/03/2025 [facility] [place] [facility] [employer] 1999 panel - Serum or Plasm a potassium [moles/volum e] in serum or plasma 4.4 mmol/ L low: 3.5mmo l/Lhig h: 5.1mmo l/L normal Not Available Not Available 01/03/2025 04:17:56 01/04/20 25 01/03/2025 [facility] [place] adrien [employer] 1999 panel - Serum or Plasm a chloride [moles/volum e] in serum or plasma 106 mmol/ L low: 98mmol /Lhigh : 107mmo l/L normal Not Available Not Available 01/03/2025 04:17:56 01/04/20 25 01/03/2025 [facility] [place] adrien [employer] 1999 panel - Serum or Plasm a carbon dioxide, total [moles/volum e] in serum or plasma 22 mmol/ L low: 22mmol /Lhigh : 30mmol /L normal Not Available Not Available 01/03/2025 04:17:56 01/04/20 25 01/03/2025 [facility] [employer] adrien [employer] 1999 panel - Serum or Plasm a anion gap in serum or plasma by calculation 14.4 mmol/ L low: 14mmol /Lhigh : 22mmol /L normal Not Available Not Available 01/03/2025 04:17:56 01/04/20 25 01/03/2025 [facility] [employer] [facility] 1999 panel - Serum or Plasm a glucose [mass/volume ] in serum or plasma 157 mg/dL low: 70mg/d Lhigh: 99mg/d L high Not Available Not Available 01/03/2025 04:17:56 01/04/20 25 01/03/2025 [facility] panel - Serum or Plasm a urea nitrogen [mass or moles/volume ] in serum or plasma 21 mg/dL low: 8mg/dL high: 19mg/d L high Not Available Not Available 01/03/2025 04:17:56 01/04/20 25 01/03/2025 [facility] panel - Serum or Plasm a creatinine [mass/volume ] in serum or plasma 0.6 mg/dL low: 0.66mg /dLhig h: 1.25mg /dL low Not Available Not Available 01/03/2025 04:17:56 01/04/20 25 01/03/2025 [facility] [place] [address] panel - Serum or Plasm a glomerular filtration rate [volume rate/area] in serum, plasma or blood by based on 1.73 sq M >60 normal Not Available Not Available 04:17:56 01/04/20 25 01/03/2025 [facility] [place] [address] panel - Serum or Plasm a alkaline phosphatase [enzymatic activity/vol ume] in serum or plasma 65 U/L low: 38U/Lh igh: 126U/L normal Not Available Not Available 01/03/2025 04:17:56 01/04/20 25 01/03/2025 [facility] [employer] [place] [address] panel - Serum or Plasm a alanine aminotransfe rase [enzymatic activity/vol ume] in serum or plasma 20 U/L low: 0U/Lhi gh: 35U/L normal Not Available Not Available 01/03/2025 04:17:56 01/04/20 25 01/03/2025 [facility] [employer] [facility] [employer] [place] [address] panel - Serum or Plasm a aspartate aminotransfe rase [enzymatic activity/vol ume] in serum or plasma 23 U/L low: 15U/Lh igh: 37U/L normal Not Available Not Available 01/03/2025 04:17:56 01/04/20 25 01/03/2025 [facility] [place] [facility] [employer] [place] 1999 panel - Serum or Plasm a bilirubin.to regina [mass/volume ] in serum or plasma 0.4 mg/dL low: 0.2mg/ dLhigh : 1.3mg/ dL normal Not Available Not Available 01/03/2025 04:17:56 01/04/20 25 01/03/2025 [facility] [place] [facility] [employer] 1999 panel - Serum or Plasm a calcium [mass/volume ] in serum or plasma 9.3 mg/dL low: 8.4mg/ dLhigh : 10.2mg /dL normal Not Available Not Available 01/03/2025 04:17:56 01/04/20 25 01/03/2025 [facility] [place] [facility] [employer] 1999 panel - Serum or Plasm a protein [mass/volume ] in serum or plasma 6.8 g/dL low: 6.3g/d Lhigh: 8.2g/d L normal Not Available Not Available 01/03/2025 04:17:56 01/04/20 25 01/03/2025 [facility] [place] [facility] [employer] [facility] 1999 panel - Serum or Plasm a albumin [mass/volume ] in serum or plasma 4 g/dL low: 3.4g/d Lhigh: 5g/dL normal Not Available Not Available 01/03/2025 04:17:56 01/04/20 25 01/03/2025 [facility] [place] [facility] [employer] 2000 panel - Serum or Plasm a globulin [mass/volume ] in serum 2.8 g/dL low: 2.6g/d Lhigh: 4.2g/d L normal Not Available Not Available 01/03/2025 04:17:56 01/04/20 25 01/03/2025 [facility] [place] [facility] 2000 panel - Serum or Plasm a albumin/glob ulin [mass ratio] in serum or plasma 1.4 ratio low: 1ratio high: 2ratio normal Not Available Not Available 01/03/2025 04:17:56 01/04/20 25 01/03/2025 [facility] panel - Blood leukocytes [#/volume] in blood by automated count 9.6 x10'3 /uL low: 4.2x10 '3/uLh igh: 10.8x1 0'3/uL normal Not Available Not Available 01/03/2025 04:17:55 01/04/20 25 01/03/2025 [facility] panel - Blood erythrocytes [#/volume] in blood by automated count 4.42 x10'6 /uL low: 3.8x10 '6/uLh igh: 5.2x10 '6/uL normal Not Available Not Available 01/03/2025 04:17:55 01/04/20 25 01/03/2025 [facility] panel - Blood hemoglobin [mass/volume ] in blood 12.8 g/dL low: 12g/dL high: 15.6g/ dL normal Not Available Not Available 01/03/2025 04:17:55 01/04/2001/03/2025 [facility] panel - Blood hematocrit [volume fraction] of blood by automated count 37.9 % low: 35.7%h igh: 45.7% normal Not Available Not Available 01/03/2025 04:17:55 01/04/2001/03/2025 [facility] panel - Blood MCV [entitic mean volume] in red blood cells by automated count 85.7 fL low: 82fLhi gh: 99fL normal Not Available Not Available 01/03/2025 04:17:55 01/04/2001/03/2025 [facility] panel - Blood MCH [entitic mass] by automated count 29 pg low: 27pghi gh: 33pg normal Not Available Not Available 01/03/2025 04:17:55 01/04/2001/03/2025 [facility] panel - Blood MCHC [entitic mass/volume] in red blood cells by automated count 33.8 g/dL low: 31g/dL high: 36g/dL normal Not Available Not Available 01/03/2025 04:17:55 01/04/20 25 01/03/2025 [facility] panel - Blood erythrocyte [distwidth] in red blood cells 14 % low: 11.8%h igh: 15.5% normal Not Available Not Available 01/03/2025 04:17:55 01/04/20 25 01/03/2025 [facility] panel - Blood platelets [#/volume] in blood by automated count 258 x10'3 /uL low: 150x10 '3/uLh igh: 400x10 '3/uL normal Not Available Not Available 01/03/2025 04:17:55 01/04/20 25 01/03/2025 [facility] panel - Blood platelet [entitic mean volume] in blood by automated count 10.3 fL low: 9fLhig h: 12.4fL normal Not Available Not Available 01/03/2025 04:17:55 01/04/20 25 01/03/2025 [facility] panel - Blood neutrophils/ leukocytes in blood 59.5 % low: 39%hig h: 72% normal Not Available Not Available 01/03/2025 04:17:55 01/04/20 25 01/03/2025 [facility] panel - Blood lymphocytes/ leukocytes in blood 27.3 % low: 16%hig h: 47% normal Not Available Not Available 01/03/2025 04:17:55 01/04/20 25 01/03/2025 [facility] panel - Blood monocytes/le ukocytes in blood 5.7 % low: 5%high : 12% normal Not Available Not Available 01/03/2025 04:17:55 01/04/20 25 01/03/2025 [facility] panel - Blood eosinophils [#/volume] in blood 6.5 % low: 1%high : 7% normal Not Available Not Available 01/03/2025 04:17:55 01/04/20 25 01/03/2025 [facility] panel - Blood basophils/le ukocytes in blood 0.7 % low: 0%high : 2% normal Not Available Not Available 01/03/2025 04:17:55 01/04/20 25 01/03/2025 [facility] panel - Blood immature granulocytes /leukocytes in blood 0.3 % low: 0%high : 0.5% normal Not Available Not Available 01/03/2025 04:17:55 01/04/20 25 01/03/2025 [facility] panel - Blood neutrophils [#/volume] in blood 5.72 x10'3 /uL low: 1.5x10 '3/uLh igh: 8x10'3 /uL normal Not Available Not Available 01/03/2025 04:17:55 01/04/20 25 01/03/2025 [facility] panel - Blood lymphocytes [#/volume] in blood 2.63 x10'3 /uL low: 1.07x1 0'3/uL high: 3.43x1 0'3/uL normal Not Available Not Available 01/03/2025 04:17:55 01/04/20 25 01/03/2025 [facility] panel - Blood monocytes [#/volume] in blood 0.55 x10'3 /uL low: 0.29x1 0'3/uL high: 0.99x1 0'3/uL normal Not Available Not Available 01/03/2025 04:17:55 01/04/20 25 01/03/2025 [facility] panel - Blood eosinophils [#/volume] in blood 0.63 x10'3 /uL low: 0.02x1 0'3/uL high: 0.53x1 0'3/uL high Not Available Not Available 01/03/2025 04:17:55 01/04/20 25 01/03/2025 [facility] panel - Blood basophils [#/volume] in blood 0.07 x10'3 /uL low: 0.01x1 0'3/uL high: 0.08x1 0'3/uL normal Not Available Not Available 01/03/2025 04:17:55 01/04/20 25 01/03/2025 [facility] panel - Blood immature granulocytes [#/volume] in blood 0.03 x10'3 /uL low: 0x10'3 /uLhig h: 0.05x1 0'3/uL normal Not Available Not Available 01/03/2025 04:17:55 01/04/20 25 01/03/2025 [facility] panel - Blood nucleated erythrocytes /leukocytes [ratio] in blood 0 % high: 0% normal Not Available Not Available 01/03/2025 04:17:55 01/04/20 25 01/03/2025 [facility] panel - Blood nucleated erythrocytes [#/volume] in blood by automated count 0 x10'3 /uL normal Not Available Not Available 01/04/20 04:17:55 08/31/19 21 08/26/2020 XR, chest , 2 view No observ ation record ed. [email or web address] Not Available 2020 12:59:02 11/19/19 21 11/12/2020 XR, chest No observ ation record ed. [email or web address] Not Available 2020 15:45:05 11/19/19 21 11/12/2020 US, doppl er, venou s No observ ation record ed. [email or web address] Not Available 2020 15:45:05 11/19/19 21 11/12/2020 CT, angio gram, chest , w/ contr ast No observ ation record ed. [email or web address] Not Available 2020 15:45:06 03/01/20 24 03/01/2024 XR, hand No observ ation record ed. [email or web address] [facility] [address] [place], [address], 03/10/2024 22:26:13 01/04/20 25 01/03/2025 XR, chest No observ ation record ed. [email or web address] [facility] [address] [place], [address], 01/03/2025 22:24:24 Result Notes Documentation Provider Name and Address Organization Details Recorded Time Culture, Urine : Mixed urogenital batsheva Lauren Messina [place], [place] [facility] 08/03/2022 15:50:56 Problems Name Problem SNOMED Code Status Onset Date Resolution Date Notes Provider Name and Address Organization Details Recorded Time Abnormal progester one 107863979 Active 2017 Lauren Kat [place] [facility] 8 11:22:32 Anxiety 84936155 Active [address] [place] [facility] 8 17:01:26 Depressiv e disorder 36974031 Active [address] [place] [facility] 8 17:01:34 Smoker 12375240 Active [address] [place] [facility] 8 17:01:47 01346471 Completed 201701/22/[address] [place] [facility] 8 23:10:11 Angioedem a 46851154 Completed 2017 Lauren Kat [place] [facility] 8 11:22:32 Angioedem a 26045944 Active 2017 Laruen Kat [place] [facility] 8 11:22:32 Recurrent miscarria ge 196099363 Completed 2014 Lauren Kat [place] [facility] 8 11:22:32 Abnormal progester one 605065784 Completed 2017 Lauren Kat [place] [facility] 8 11:22:32 Infection by Trichomon as 21731060 Completed 2017 Lauren Kat [place] [facility] 8 11:22:32 Infection by Trichomon as 10425080 Completed 201704/16/2019 DIMA OLSON Attn: Rajwinder heart,[address] [place], [address], [place] - [facility] 9 11:10:14 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 025135331392 102 Active 2017 Lauren [place] Kat [place] [facility] 8 11:22:32 Breech presentat ion 4163662 Completed 2017 Lauren [place] Kat [place] [facility] 8 11:22:32 Breech presentat ion 9905071 Active 2017 Lauren [place] Kat [place] [facility] 8 11:22:32 Gastroeso phageal reflux disease 695396140 Active 2017 Lauren [place] Kat [place] [facility] 8 11:22:32 Gastroeso phageal reflux disease 463057759 Completed 2017 Lauren [place] Kat [place] [facility] 8 11:22:32 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, [place], [address], [place] [facility] 9 10:04:41 Asthma 667814341 Active 2018 DIMA OLSON Attn: Rajwinder g,[address] [facility], [place], [address], [place] [facility] 9 15:37:04 Polycysti c ovary syndrome 544159557 Active 2019 Frank Gomez MD Attn: Rajwinder heart,[address] [facility], [place], [address], [place] [facility] 0 11:46:42 Migraine 03297430 Active 2019 Frank Gomez MD Attn: Rajwinder heart,[address] [facility], [place], [address], [place] [facility] 0 11:52:25 Aching pain 51983746 Active 2019 Frank Gomez MD Attn: Rajwinder heart,[address] [facility], [place], [address], [place] [facility] 0 12:05:12 Obesity 505113047 Active 2019 Frank Gomez MD Attn: Rajwinder heart,[address] [facility], [place], [address], [place] [facility] 0 12:06:56 Celluliti s 648549138 Active 2020 Frank Gomez MD Attn: Rajwinder heart,[address] [facility], [place], [address], [place] [facility] 1 13:54:27 Family history of cancer of colon 444031784 Active 2020 Frank Gomez MD Attn: Rajwinder heart,[address] [facility], [place], [address], [place] [facility] 1 13:55:37 Urogenita l infection by Trichomon as vaginalis 06520076 Active [address] [place] [facility] 1 16:56:27 Recurrent miscarria ge 953703152 Active 2014 Lauren Kat [place] [facility] 8 11:22:32 Notes:Some problems listed i n Documents: #[id number], #[id number] could not be added to this patient's chart. Please review these documents and add these problems to the patient's chart manually as needed. Problem Notes None recorded. Procedures Surgical History Date Name Laterality Status Provider Name and Address Organization Details Recorded Time Date of Last Pap Smear completed Lauren Messina MA [facility] 09/24/2021 11:07:46 8 SECTION (SURG) completed Carl [facility] 03/29/2018 11:35:44 Imaging Results None recorded. Procedure Notes None recorded. Medical Equipment None Reported. Allergies Allergen ID Allergen Name Allergen Category Reaction Reaction Severity Criticality Documentation Date Start Date Code Code System Note Provider Name and Address Organization Details Recorded Time 850493 Product containin g penicilli n (product) medicatio n hives moderate Not available 01/04/2018 78697 8001 SNOMED GARY Smith [facility] 8 16:51:33 471865 latex environme nt,medica tion itching severe Not available 04/16/2019 59200 91 [facility] 11:10:32 Medications Name Sig Start Date Stop Date Status Note LastModified by Organization Details LastModified Time multivitami n tablet Take 1 tablet every day by oral route. 09/24 completed Not Available Not Available Not Available cyclobenzap rine 10 mg tablet 07/28 completed Not Available Not Available Not Available amoxicillin 500 mg capsule active Not Available Not Available Not Available metformin 500 mg tablet Take 1 tablet twice a day by oral route. 01/21 completed Not Available Not Available Not Available bupropion HCl SR 150 mg tablet,12 hr sustained-r elease Take 1 tablet twice a day by oral route. 04/16 completed Not Available Not Available Not Available clindamycin HCl 300 mg capsule TAKE 1 CAPSULE BY MOUTH EVERY 6 HOURS FOR 10 DAYS 03/04 completed Not Available Not Available Not Available albuterol sulfate 2.5 mg/3 mL (0.083 %) solution for nebulizatio n INHALE 3 ML 3 TIMES A DAY BY NEBULIZAT ION ROUTE NEEDED. active Not Available Not Available No t Available citalopram 40 mg tablet Take 1 tablet every day by oral route. 04/16 completed Not Available Not Available Not Available azithromyci n 250 mg tablet TAKE 2 TABLETS (500 MG) BY ORAL ROUTE ONCE DAILY FOR 1 DAY THEN 1 TABLET (250 MG) BY ORAL ROUTE ONCE DAILY FOR 4 DAYS 03/06 completed Not Available Not Available Not Available ibuprofen 800 mg tablet TAKE 1 TABLET BY MOUTH TWICE A DAY X10 DAYS 07/28 completed Not Available Not Available Not Available fluconazole 150 mg tablet Take 1 tablet every day by oral route as directed for 1 day. 07/28 completed Not Available Not Available Not Available ranitidine 300 mg tablet Take 1 tablet every day by oral route at bedtime. 01/04 completed Not Available Not Available Not Available sumatriptan 100 mg tablet TAKE 1 TABLET BY MOUTH EVERY DAY NEEDED 03/04 completed Not Available Not Available Not Available hydrocodone 5 mg-acetamin ophen 325 mg tablet active Not Available Not Available No t Available metronidazo le 0.75 % (37.5 mg/5 gram) vaginal gel INSERT 1 APPLICATO RFUL INTO VAGINA ONCE DAILY 07/28 completed Not Available Not Available Not Available ondansetron HCl 4 mg tablet Take 1 tablet every 8 hours by oral route as needed for 30 days. 01/04 completed Not Available Not Available Not Available prednisone 20 mg tablet TAKE 1 TABLET BY MOUTH EVERY DAY FOR 5 DAYS active Not Available Not Available No t Available sumatriptan 50 mg tablet TAKE 1 TABLET NEEDED FOR MIGRAINE MAY TAKE ANOTHER AFTER 2 HOURS IF NEEDED. MAX 2 IN 24 HOURS 09/24 completed Not Available Not Available Not Available topiramate 25 mg tablet Take 2 tablets every day by oral route at bedtime for 30 days. 02/23 completed Not Available Not Available Not Available metronidazo le 500 mg tablet TAKE 1 TABLET BY MOUTH TWICE A DAY FOR 7 DAYS 09/24 completed Not Available Not Available Not Available Aspir-Low 81 mg tablet,maricel yed release 09/08 completed Not Available Not Available Not Available Tamiflu 75 mg capsule Take 1 capsule twice a day by oral route for 5 days. 10/11 completed Not Available Not Available Not Available sulfamethox azole 800 mg-trimetho prim 160 mg tablet TAKE 1 TABLET BY MOUTH EVERY 12 HOURS DIRECTED FOR 5 DAYS 07/28 completed Not Available Not Available Not Available Condoms-Pre m Lubricated USE DIRECTED 09/24 completed Not Available Not Available Not Available butalbital- acetaminoph en-caffeine 50 mg-325 mg-40 mg tablet TAKE 1 TABLET BY MOUTH FOUR TIMES A DAY NEEDED 09/24 completed Not Available Not Available Not Available amoxicillin 500 mg tablet TAKE 1 TABLET BY MOUTH THREE TIMES A DAY X10 DAYS 07/28 completed Not Available Not Available Not Available Vitamin tablet Take 1 tablet every day by oral route as directed for 90 days. 04/16 completed Not Available Not Available Not Available oxycodone-a cetaminophe n 5 mg-325 mg tablet 04/16 completed Not Available Not Available Not Available famotidine 20 mg tablet TAKE 1 TABLET BY MOUTH ONCE DAILY active Not Available Not Available No t Available cephalexin 500 mg capsule TAKE 1 CAPSULE BY MOUTH EVERY 6 HOURS FOR 7 DAYS 09/24 completed Not Available Not Available Not Available paroxetine 20 mg tablet Take 1 tablet every day by oral route in the morning for 30 days. 01/21 completed Not Available Not Available Not Available cyanocobala min (vit B-12) 1,000 mcg/mL injection solution Inject 1 mL every month by intramusc ular route. 04/16 completed Not Available Not Available Not Available ferrous sulfate 325 mg (65 mg iron) tablet 04/16 completed Not Available Not Available Not Available ranitidine 150 mg tablet TAKE 1 TABLET(S) TWICE A DAY BY ORAL ROUTE FOR STOMACH 03/29 completed Not Available Not Available Not Available progesteron e micronized 200 mg capsule INSERT 1 CAPSULE VAGINALLY TWICE DAILY DIRECTED active Not Available Not Available No t Available gabapentin 300 mg capsule Take 1 capsule 3 times a day by oral route. 02/14 completed Not Available Not Available Not Available omeprazole 20 mg capsule,del ayed release TAKE 1 CAPSULE BY MOUTH EVERY DAY BEFORE A MEAL 07/28 completed Not Available Not Available Not Available Banophen 25 mg capsule TAKE 1 CAPSULE BY MOUTH EVERY 6 HOURS NEEDED FOR ALLERGY CONTROL 07/28 completed Not Available Not Available Not Available folic acid 1 mg tablet Take 4 tablets every day by oral route as directed for 30 days. 04/16 completed Not Available Not Available Not Available montelukast 10 mg tablet TAKE 1 TABLET BY MOUTH EVERY DAY 09/24 completed Not Available Not Available Not Available hydroxyzine HCl 25 mg tablet TAKE 1 TABLET BY MOUTH THREE TIMES A DAY NEEDED 09/24 completed Not Available Not Available Not Available mupirocin 2 % topical ointment APPLY A SMALL AMOUNT TO THE AFFECTED AREA BY TOPICAL ROUTE 3 TIMES PER DAY 03/29 completed Not Available Not Available Not Available epinephrine 0.3 mg/0.3 mL injection, auto-inject or USE DIRECTED active Not Available Not Available No t Available albuterol sulfate HFA 90 mcg/actuati on aerosol inhaler INHALE 2 PUFFS BY MOUTH 4 TIMES DAILY NEEDED 2022 active Not Available Not Available Not Avai lable paroxetine 40 mg tablet Take 1 tablet every day by oral route as directed for 30 days. 09/08 completed Not Available Not Available Not Available hydroxyzine HCl 10 mg tablet Take 1 tablet 3 times a day by oral route as needed for 30 days. 09/08 completed Not Available Not Available Not Available ondansetron 4 mg disintegrat ing tablet DISSOLVE 1 TABLET ON TONGUE EVERY 6 HOURS NEEDED FOR NAUSEA AND VOMITING. INS MAX:1/DAY 07/28 completed Not Available Not Available Not Available metformin ER 500 mg tablet,exte nded release 24 hr TAKE 1 TABLET BY MOUTH TWICE A DAY WITH MEALS FOR 30 DAYS 07/28 completed Not Available Not Available Not Available sertraline 50 mg tablet Take 1 tablet every day by oral route. 02/14 completed Not Available Not Available Not Available naproxen 500 mg tablet 02/23 completed Not Available Not Available Not Available metoclopram christiano 10 mg tablet Take 1 tablet 4 times a day by oral route before meals. 03/29 completed Not Available Not Available Not Available progesteron e micronized 100 mg capsule Take 1 capsule twice a day by oral route. 03/29 completed Not Available Not Available Not Available amoxicillin 875 mg-potassiu m clavulanate 125 mg tablet TAKE 1 TABLET BY MOUTH EVERY 12 HOURS 07/28 completed Not Available Not Available Not Available nicotine 21mg/24hr-1 4mg/24hr-7m g/24hr daily transderm patches,seq uentl Apply 1 patch every day by transderm al route as directed. 08/15 completed Not Available Not Available Not Available FE 08/19 (28) 1 mg-20 mcg (21)/75 mg (7) tablet 04/16 completed Not Available Not Available Not Available topiramate 50 mg tablet TAKE 1 TABLET BY MOUTH TWICE A DAY 09/24 completed Not Available Not Available Not Available nitrofurant oin monohydrate /macrocryst als 100 mg capsule TAKE 1 CAPSULE BY MOUTH EVERY 12 HOURS X7 DAYS 07/28 completed Not Available Not Available Not Available Symbicort 80 mcg-4.5 mcg/actuati on HFA aerosol inhaler TAKE 2 PUFFS BY MOUTH TWICE A DAY 09/24 completed Not Available Not Available Not Available Calcium 600 with Vitamin D3 600 mg-10 mcg (400 unit) chewable tablet Take 1 tablet twice a day by oral route. 04/16 completed Not Available Not Available Not Available Calcium with Vitamin D3 600 mg (carbonate) -10 mcg (400 unit) capsule Take 1 capsule twice a day by oral route. 09/01 completed Not Available Not Available Not Available Calcium with Vitamin D 600 mg-10 mcg (400 unit) tablet Take 1 tablet twice a day by oral route. 09/24 completed Not Available Not Available Not Available Plus (calcium carbonate) 27 mg iron-1 mg tablet 01/04 completed Not Available Not Available Not Available 28 mg iron-800 mcg tablet TAKE 1 TABLET BY MOUTH EVERY DAY DIRECTED active Not Available Not Available No t Available calcium 600 mg (as carbonate)- vitamin D3 20 mcg (800 unit) tablet Take 1 tablet twice a day by oral route for 30 days. 09/01 completed Not Available Not Available Not Available Deplin (algal oil) 15 mg-90.314 mg capsule Take 1 capsule by oral route for 30 days. 08/15 completed Not Available Not Available Not Available Junel Fe 24 1 mg-20 mcg (24)/75 mg (4) tablet Take 1 tablet every day by oral route. 04/16 completed Not Available Not Available Not Available Qvar RediHaler 40 mcg/actuati on HFA breath activated aerosol Inhale 1 puff twice a day by inhalatio n route as directed for 30 days. 08/14 completed Not Available Not Available Not Available Venusxcass Inhub 100 mcg-50 mcg/dose powder for inhalation Inhale 1 puff twice a day by inhalatio n route as directed for 30 days. 09/24 completed Not Available Not Available Not Available Vitals Date Recorded Body height Body mass index (BMI) Body weight Heart rate Oxygen saturation Oxygen saturation in Arterial blood by Pulse oximetry Body temperature Respiratory rate Provider Name and Address Organization Details Last Updated DateTime 1 162.56 cm 39.1 kg/m2 643201. 06 g 82 /min 97 % 97 % 98.6 [degF] 24 /min Frank Gomez MD Attn: Rajwinder heart,[address] [place], [address], [facility] 1 12:14:37 Date Recorded Body height Body mass index (BMI) Body weight Heart rate Oxygen saturation Oxygen saturation in Arterial blood by Pulse oximetry Systolic blood pressure Diastolic blood pressure Provider Name and Address Organization Details Last Updated DateTime 2 162.56 cm 35.6 kg/m2 24616.0 2 g 75 /min 97 % 97 % 120 mm[Hg] 82 mm[Hg] Lauren Messina [facility] 2 11:06:38 Date Recorded Body height Body mass index (BMI) Body weight Body temperature Heart rate Oxygen saturation Oxygen saturation in Arterial blood by Pulse oximetry Systolic blood pressure Diastolic blood pressure Provider Name and Address Organization Details Last Updated DateTime 0 162.56 cm 37.8 kg/m2 00532.3 2 g 98.3 [degF] 89 /min 95 % 95 % 106 mm[Hg] 84 mm[Hg] Jacinda Mcmahon [facility] 0 10:41:30 Date Recorded Systolic blood pressure Diastolic blood pressure Provider Name and Address Organization Details Last Updated DateTime 03/04/2021 118 mm[Hg] 68 mm[Hg] DIMA SANCHEZ Attn: Account[employer], [place], [address], [place] [facility] 03/04/2021 16:32:34 Date Recorded Body height Body mass index (BMI) Body weight Provider Name and Address Organization Details Last Updated DateTime 03/04/2021 162.56 cm 39.8 kg/m2 868559.43 g Mabel Christopher MA [facility] 03/04/2021 15:45:51 Date Recorded Body height Body mass index (BMI) Body weight Heart rate Body temperature Oxygen saturation Oxygen saturation in Arterial blood by Pulse oximetry Systolic blood pressure Diastolic blood pressure Provider Name and Address Organization Details Last Updated DateTime 2 162.56 cm 36.3 kg/m2 21762.3 9 g 86 /min 99.8 [degF] 97 % 97 % 118 mm[Hg] 74 mm[Hg] Lauren Messina MA [facility] 2 15:06:11 Social History Question Answer Notes LastModified by Organizat ion Details LastModified Time Tobacco Smoking Status Current Every Day Smoker Loree Ledesma MA null, [facility] 05/19/2016 13:23:28 Do You Have An Advance Directive? No Information not available 05/19/2016 If You Are , What Was Your Level Of Alcohol Consumption Prior To ? Occasional Information not available 09/01/2017 Is Anesthesia Consult Planned? Yes Information not available 09/01/2017 Plan No Information no t available 08/15/2017 Is Blood Transfusion Acceptable In An Emergency? Yes Information not available 05/19/2016 What Is Your Level Of Caffeine Consumption? Moderate Tea And Soda Information not available 05/19/2016 Live With Cats/exposure To Cat Litter No Information not available 08/15/2017 How Much Tobacco Do You Chew? None Information not available 05/19/2016 In The 14 Days Before Symptom Onset, Have You Had Close Contact With A Laboratory-confi rmed COVID-19 While That Case Was Ill? No Information not available 09/24/2021 In The 14 Days Before Symptom Onset, Have You Had Close Contact With A Person Who Is Under Investigation For COVID-19 While That Person Was Ill? No Information not available 09/24/2021 Have You Been To An Area Known To Be High Risk For COVID-19? No Information not available 09/24/2021 What Type Of Diet Are You Following? REGULAR Information not available 05/19/2016 Which Illicit Or Recreational Drugs Have You Used? THC Not As Much As First Information not available 10/11/2017 Education 11 Information no t available 05/19/2016 Have There Been Any Changes To Your Family Or Social Situation? No Information not available 08/15/2017 Frequent Air Travel No Information not available 08/15/2017 Illicit Drugs Pre- THC Information not available 09/01/2017 How Many Years Have You Used Illicit Or Recreational Drugs? 15 Information not available 09/01/2017 Live Alone Or With Others? With Others Information not available 08/15/2017 Marital Status Single Informatio n not available 08/15/2017 What Was The Date Of Your Most Recent Tobacco Screening? 07/28/2022 Information not available 07/28/2022 How Many Children Do You Have? 2 [email or web address] Information not available 09/08/2020 Are There Any Occupational Health Risks Where You Work? None Information not available 08/15/2017 What Is Your Current Pack Years? 10-19packyear s Information not available 03/04/2021 Performs Monthly Self-breast Exam? No Information not available 05/19/2016 Do You Use Protection During Sex? No Information not available 05/19/2016 What Is Your Relationship Status? Single Information not available 05/19/2016 Seat Belts Used Routinely Yes Information not available 05/19/2016 Are You Sexually Active? Yes Information not available 05/19/2016 Do You Have Smoke And Carbon Monoxide Detectors In Your Home? Yes Information not available 09/01/2017 At What Age Did You Start Smoking Tobacco? 13 Information not available 05/19/2016 Are You Passively Exposed To Smoke? Yes Information not available 08/15/2017 How Much Tobacco Do You Smoke? 0.25 PPD Information not available 10/11/2017 Smoking Pre- Yes Information not available 08/15/2017 General Stress Level High Information not available 09/01/2017 Do You Use Sunscreen Routinely? No Information not available 05/19/2016 Supplements Information n ot available 08/15/2017 Has Tobacco Cessation Counseling Been Provided? No Information not available 07/28/2022 On What Date Was Tobacco Cessation Counseling Provided? 07/28/2022 Information not available 07/28/2022 How Many Years Have You Smoked Tobacco? 12 Information not available 05/19/2016 Sex: Female Functional Status Question Answer Note LastModified by Organizat ion Details LastModified Time Do you or have you ever used any other forms of tobacco or nicotine? No Information not available 03/04/2021 What is your level of alcohol consumption? None Information not available 09/01/2017 Do you or have you ever used smokeless tobacco? Never used smokeless tobacco Information not available 09/08/2020 Are you currently employed? 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 Never used electronic cigarettes [email or web address] Information not available 04/22/2019 What is your exercise level? Occasional Information not available 05/19/2016 Mental Status None recorded. Family History Relationship Description Onset Age of this Age Resolved Age Notes LastModified by Organization Details LastModified Time Mother Asthma Not available 13:18:12 Mother Depressive disorder Not available 2015 13:18:36 Mother Diabetes mellitus Not available 2015 13:19:00 Mother Malignant tumor of cervix Not available 2015 13:20:01 Mother Cerebrovascu lar accident Not available 13:20:16 Mother Hypertensive disorder Not available 2015 13:20:30 Mother Migraine Not available 05/19/2016 13:20:44 Sister Migraine Not available 05/19/2016 13:26:33 Sister Diabetes mellitus Not available 2015 13:27:31 Father Diabetes mellitus Not available 2015 13:25:00 Father Hypertensive disorder Not available 2015 13:25:37 Paternal Grandmother Diabetes mellitus Not available 2015 13:27:48 Paternal Grandmother Hypertensive disorder Not available 2015 13:28:16 Maternal Grandmother Hypertensive disorder Not available 2015 13:28:10 Medical History Condition Response Other N High Blood Pressure N Breast Cancer N Thyroid Problems N Kidney or Bladder Problems N Blood Clots N Depression Y Lung Disease N GI Problems N Acne N Breast Problem N Eating Disorder N Anemia N Anesthesia Complications N Headaches/Migraines Y Anxiety Disorder Y Ovarian Cancer N Diabetes N Muscle, Joint, or Bone Problems N Blood Transfusions N Seizures/Epilepsy N Polyps N Infertility Y Acid Reflux (GERD) Y Cancer N Abuse/Domestic Violence N Asthma Y Endometriosis N High Cholesterol N Hepatitis N Liver Disease N Heart Disease Y Pre-Eclampsia N Osteoporosis N Gynecological History Statement/Question Response Abnormal Pap N Flow Heavy Date of LMP 06/27/2022 STIs/STDs Y HPV Vaccine N Duration of Flow (days) 3 Age at Menarche 11 Current Control Method None Age at First Child 19 Sexually Active? Y Menses Monthly N Date of Last Pap Smear 03/04/2021 Sexual Problems? N LMP Approximate Desired Control Method None Obstetrics History GPAL:G 6 P 2 0 4 2 Type Value Multiple Births 0 Full Term 2 Induced 0 Spontaneous 4 Premature 0 Living 2 Ectopics 0 Total 6 Immunizations Vaccine Type Date Status Note Provider Nam e and Address Organization Details Recorded Time Tdap 8 completed Not Available [facility] 08/17/2019 02:40:23 Influenza, split virus, quadrivalent, preservative 6 completed Not Available [facility] 08/31/2019 02:11:36 Past Encounters Encounter ID Performer Location Encounter Start Date Encounter Closed Date Diagnosis/Indication Diagnosis SNOMED-CT Code Diagnosis ICD10 Code Diagnosis Note [id number] MD Shelia Sanchez ([facility]) [address] [place] [address] [phone] 0 05/19/2016 11:39:04 05/20/2016 11:33:56 Recurrent miscarriage 167291469 N96 Depressive disorder 3548 9007 F32.9 Smoker 98815025 F17.200 Abnormal progesterone 13 6360026 R94.7 [id number] [facility] [address] [place] [address] [phone] 0 08/15/2017 14:15:05 08/15/2017 16:09:16 Routine care 911108877 Z34.80 Recurrent miscarriage 10 2287612 N96 Abnormal progesterone 13 8092744 R94.7 Depressive disorder 3548 9007 F32.9 Angioedema 03239027 T78. 3XXS Smoker 31876336 F17.353 [id number] MD Shelia Sanchez ([facility]) [address] [place] [address] [phone] 0 09/01/2017 10:55:24 09/01/2017 11:49:53 Routine care 300195670 Z34.[id number] MD [facility] ([facility]) [address] [place] [address] [phone] 0 09/13/2017 12:03:12 09/13/2017 13:00:27 Routine care 664454296 Z34.80 Z34.81 Infection by Trichomonas 56793459 A59.9 positive on 08/15/17, will do test of cure Influenza 4816235 J11.[address] reptococcus carrier 9796486052 103 Z22.330 Candidiasis of vagina 72 681010 B37.3 Recurrent miscarriage 10 2356634 N96 [id number] [facility] [address] [place] [address] [phone] 0 10/11/2017 12:15:07 10/11/2017 14:44:48 Routine care 734780763 Z34.80 Z34.81 Heartburn 51051204 R12 Nausea 344715759 R11.0 [id number] MD Shelia Sanchez ([facility]) [address] [place] [address] [phone] 0 11/08/2017 10:58:37 11/08/2017 13:08:24 Routine care 258372710 Z34.80 Z34.81 screening 2437 55556 Z36.9 Recurrent miscarriage 10 1679186 N96 Continue bASA and progestero [place] [id number] [address] MD [facility] ([facility]) [address] [place] [address] [phone] 0 12/06/2017 11:05:20 12/06/2017 12:59:14 Routine care 294055708 Z34.80 Z34.81 Exposure t o sexually transmissible disorder 431764888 Z20.2 Hyperemesi s gravidarum 82901830 O21.0 Heartburn 28651663 R12 screening 2437 77563 Z36.9 Heterozygo us methylenetetrahydrofo late reductase mutation 4847728096 21590 E72.12 B12 every month, folic acid 4 mg daily [id number] [facility] [address] [place] [address] [phone] 0 01/04/2018 14:49:05 01/04/2018 17:14:25 Routine care 082896944 Z34.80 Z34.81 Heterozygo us methylenetetrahydrofo late reductase mutation [id number] 83279 E72.12 B12 every month, folic acid [address] reptococcus carrier 9881546677 103 Z22.330 Recurrent miscarriage 10 7201754 N96 Continue bASA and progestero ne Nausea 835091335 R11.0 Irritabili ty and anger 032353786 R45.4 Glucose to lerance test during - baby not yet delivered outside reference range 650450944 R73.09 Smoker 99785920 F17.200 Encouraged smoking cessation. Patient has no desire or plan to quit at this time. [id number] MD Shelia Sanchez ([facility]) [address] [place] [address] [phone] 0 01/23/2018 15:29:18 01/24/2018 11:38:01 Routine care 176371245 Z34.80 Z34.81 Patient was unable to provide urine sample. Heterozygo us methylenetetrahydrofo late reductase mutation 7898079653 68784 E72.12 B12 every month, folic acid 4 mg daily Anxiety 45409591 F41.9 Recurrent miscarriage 10 7140670 N96 Continue bASA and progestero ne Group B St reptococcus carrier 9490685887 103 Z22.330 Depressive disorder 3548 9007 F32.9 Nausea and vomiting [id number] MD [facility] ([facility]) [address] [place] [address] [phone] 0 02/14/2018 15:40:32 02/15/2018 14:06:46 Routine care 774872406 Z34.80 Z34.81 Heterozygo us methylenetetrahydrofo late reductase mutation 6050713884 80129 E72.12 B12 every month, folic acid 4 mg daily Breech presentation 6096 002 O32.1XX9 Irritabili ty and anger 556725663 R45.[id number] MD [facility] ([facility]) [address] [place] [address] [phone] 0 02/28/2018 11:18:18 02/28/2018 13:29:11 Routine care 522487424 Z34.80 Z34.81 Heterozygo us methylenetetrahydrofo late reductase mutation 5947968201 65244 E72.12 B12 every month, folic acid 4 mg daily Recurrent miscarriage 10 5104128 N96 Continue bASA and progestero ne Group B St reptococcus carrier 3200614765 103 Z22.330 Abnormal progesterone 13 0309223 R94.7 Depressive disorder 3548 9007 F32.9 Anxiety 50066285 F41.[id number] [facility] ([facility]) [address] [place] [address] [phone] 0 03/06/2018 10:57:56 03/06/2018 12:10:57 Routine care 578033053 Z34.80 Z34.81 Abscess of groin 8808223 9 L02.214 Heterozygo us methylenetetrahydrofo late reductase mutation 2061886777 76053 E72.12 B12 every month, folic acid 4 mg daily Angioedema 32902331 T78. 3XXS Recurrent miscarriage 10 8712053 N96 Continue bASA and progestero ne Group B St reptococcus carrier 7389203282 103 Z22.330 Abnormal progesterone 13 5663536 R94.7 Depressive disorder 3548 9007 F32.9 Anxiety 85004550 F41.9 Smoker 03333722 F17.200 Encouraged smoking cessation. Patient has no desire or plan to quit at this time. Breech presentation 6096 002 O32.1XX9 [id number] MD Shelia Sanchez ([facility]) [address] [place] [address] [phone] 0 03/14/2018 11:01:21 03/14/2018 13:02:13 Routine care 915217144 Z34.80 Z34.81 Heterozygo us methylenetetrahydrofo late reductase mutation 4062033417 92381 E72.12 B12 every month, folic acid 4 mg daily Angioedema 24256993 T78. 3XXS Breech presentation 6096 002 O32.1XX9 Recurrent miscarriage 10 7097511 N96 STOP bASA and progestero ne after [address] reptococcus carrier 8349861171 103 Z22.330 Depressive disorder 3548 9007 F32.9 Anxiety 58431711 F41.9 [id number] MD Shelia Sanchez ([facility]) [address] [place] [address] [phone] 0 03/21/2018 11:03:25 03/21/2018 12:37:42 Breech presentation 7829293 O32.1XX9 Last US was cephalic on 03/14/[address] reptococcus carrier 3498588616 103 Z22.330 Will give abx at labor Depressive disorder 3548 9007 F32.9 Abnormal progesterone 13 5366890 R94.7 Heterozygo us methylenetetrahydrofo late reductase mutation 9805409964 21112 E72.12 B12 every month, folic acid 4 mg daily. Gastroesop hageal reflux disease 068574154 K21.0 Routine an tenatal care 345948696 Z34.80 Z34.81 Carrier of methicillin resistant Staphylococcus aureus 735921397 Z22.322 Will give bactrim nasal tonight at induction [id number] MD Shelia Sanchez ([facility]) [address] [place] [address] [phone] 0 03/29/2018 11:04:28 03/29/2018 11:46:47 Heterozygous methylenetetrahydrofo late reductase mutation [id number] 69506 E72.12 B12 every month, folic acid 4 mg daily. state 6558725 1 Z39.2 d elivery - delivered 654506713 O82 Incision check and dressing removal. Depressive disorder 3548 9007 F32.9 Anxiety 32307087 F41.9 Angioedema 04256524 T78. 3XXS Methicilli n resistant Staphylococcus aureus infection 470947424 A49.02 [id number] DIMA OLSON (Adult Med) [address] [place] [address] 04/16/2019 10:58:36 04/17/2019 09:19:50 Depressive disorder 80343260 F32.9 Admits to a lifetime of anxiety and depression , I have always just dealt with it. States her most problemati c symptom is her irritabili ty. Denies HI/SI.She has tried medication s it the past, did not like them because made her feel weirdAdmit s that she does not like taking medication s- Advised patient to stop by the side of the clinic and make an appointmen t with counseling today Angioedema 24377047 T78. 3XXD States she is suffering from a form of angioedema x 3 years but no one has been able to properly diagnose her.Descri bes her flares as facial swelling, tongue swelling, forehead bulging, face develops red splotches, skin feels tight, burning of her skin, and pain.Denie s allergy to food/medic ation/envi romental factorsSta carlee she has had allergy testing completed in the past but normalDoes not take any medication s that may cause angioedema . Denies family history of angioedema . On PE: no facial swelling present at this time- Will get records from PCP to better understand what is going on Smoker 43784190 F17.200 Advised patient to quit smoking, discussed risks of continuing and benefits from quitting, patient to reach out for help when interested in quitting Anxiety 78373262 F41.9 Describes what sounds like panic attacks, including heart racing, palpitatio ns, dizziness, and sensory issues. She even admits her facial swelling will occur when her anxiety is high. - May consider hydroxyzin e for her anxiety, would like to wait for medical records regarding angioedema before starting this medication Adult heal th examination 830380017 Z00.00 Pain of mu ltiple joints 70471769 M25.50 Complainin g of right knee pain/swell ing and stiffness/ pain in her hands and fingers. This has been going on x 1-2 years.I have trouble even bending my fingers at times.Den ies trauma/inj ury to any joints. Denies family history of rheumatolo gy issues. - will order basic rheumatolo gy labs with the hope to rule out possible cause of joint pain/body swelling Asthma 293531701 J45.90 9 Hx of asthma, she is completely out of her medication . She usually has an albuterol inhaler and a nebulizer machine at home. Admits to having to use her inhaler and nebulizer machine both multiple times a day, especially at night, due to shortness of breath.Smo kes 1/4 PPD x 12 years. - Will order albuterol inhaler and solution for nebulizer- Will start inhaled steroid due to increased use of albuterol Pain in right knee 38608 78361 59545 M25.561 Complainin g of right knee pain x 1-2 years.Whe n I bend my right knee, I feel a tearing/bu rning sensation . Denies trauma/inj ury to any joints. Denies family history of rheumatolo gy issues.On PE: minor swelling present, tenderness to the lateral patellar facet, pain with complete flexion, and weak quadricep musclesSou nds like PFS- Will get xray of knee- Provided patient with knee exercises to complete at home and care instructio ns [id number] MD Shelia Sanchez ([facility]) [address] [place] [address] [phone] 0 04/22/2019 15:17:41 04/23/2019 13:19:49 Irregular periods 25705117 N92.6 At [facility] ed risk of sexually transmitted infection 538379116 Z20.2 Acute urin delores tract infection 771865315 N39.0 Polycystic ovaries 73256 008 E28.2 Family dana nning surveillance 203492178 Z30.09 [id number] [facility] OLSON (Adult Med) [address] [place] [address] [phone] 0 08/14/2019 11:01:38 08/14/2019 12:07:50 Angioedema 50382523 T78.3XXD States she is suffering from a form of angioedema x 3 years but no one has been able to properly diagnose her.Descri bes her flares as facial swelling, tongue swelling, forehead bulging, face develops red splotches, skin feels tight, burning of her skin, and pain.Denie s allergy to food/medic ation/envi romental factorsSta carlee she has had allergy testing completed in the past but normalDoes not take any medication s that may cause angioedema . Denies family history of angioedema . On PE: no facial swelling present at this time- takes benadryl PRN Depressive disorder 3548 9007 F32.9 Admits to a lifetime of anxiety and depression , I have always just dealt with it.Recent ly lost a family member 6 months ago and still having issues coping with this lossStates her most problemati c symptom is her irritabili ty.Denies HI/SI.Inte rested in starting medication Did not make a counseling appointmen t like I asked her to last visit- will start paxil- return in 1 month Anxiety 89724980 F41.9 Describes what sounds like panic attacks, including heart racing, palpitatio ns, dizziness, and sensory issues. She even admits her facial swelling will occur when her anxiety is high.- Will order EKG to rule out arrythmia- Will start hydroxyzin e PRN for anxiety/pa facundo symptoms Pain in right knee 30770 07716 67795 M25.561 Complainin g of right knee pain x 1-2 years.Whe n I bend my right knee, I feel a tearing/bu rning sensation . Denies trauma/inj ury to any joints. Denies family history of rheumatolo gy issues.On PE: minor swelling present, tenderness to the lateral patellar facet, pain with complete flexion, and weak quadricep musclesSou nds like PFSDid not get xray completed from last visit - Provided her with new xray of knee- continue with knee exercises, stretching and supportive care Asthma 940928530 J45.90 9 Hx of asthma. She is using albuterol 2-3x/day, nebulizer as needed, and qvar but feels like qvar is not helpful.Sh e also admits to smoking, smokes 1/4 PPD x 12 years.Will order albuterol inhaler and solution for nebulizer- Will start inhaled steroid due to increased use of albuterol Smoker 77300008 F17.200 Advised patient to quit smoking, discussed risks of continuing and benefits from quitting, patient to reach out for help when interested in quitting [id number] DIMA OLSON (Adult Med) [address] [place] [address] [phone] 0 09/18/2019 10:52:39 09/19/2019 10:37:40 Depressive disorder 46766518 F32.9 Admits to a lifetime of anxiety and depression , I have always just dealt with it.Recent ly lost a family member 6 months ago and still having issues coping with this lossFeels like medication is helping but still having issues with irritabili ty.Denies HI/SI. Did not make a counseling appointmen t like I asked her to last visit- will increase paxil from 20 mg to 40 mg Anxiety 02329050 F41.9 Describes what sounds like panic attacks, including heart racing, palpitatio ns, dizziness, and sensory issues. She even admits her facial swelling will occur when her anxiety is high.Did not get EKG completed, states she lost the order - provided her with EKG to rule out arrythmia- C/w hydroxyzin e PRN for anxiety/pa facundo symptoms Pain in right knee 90217 39702 31430 M25.561 Complainin g of right knee pain x 1-2 years.Whe n I bend my right knee, I feel a tearing/bu rning sensation . Denies trauma/inj ury to any joints. Denies family history of rheumatolo gy issues.On PE: minor swelling present, tenderness to the lateral patellar facet, pain with complete flexion, and weak quadricep musclesSou nds like PFSDid not get xray completed from last visit - Provided her with new xray of knee- continue with knee exercises, stretching and supportive care Angioedema 58611509 T78. 3XXD States she is suffering from a form of angioedema x 3 years but no one has been able to properly diagnose her.Descri bes her flares as facial swelling, tongue swelling, forehead bulging, face develops red splotches, skin feels tight, burning of her skin, and pain.Denie s allergy to food/medic ation/envi romental factorsSta carlee she has had allergy testing completed in the past but normalDoes not take any medication s that may cause angioedema . Denies family history of angioedema . On PE: no facial swelling present at this time- takes benadryl PRN - consider cortisol testing and additional referrals Smoker 06145407 F17.200 Advised patient to quit smoking, discussed risks of continuing and benefits from quitting, patient to reach out for help when interested in quitting [id number] DIM[facility] OLSON (Adult Med) [address] [place] [address] 01/22/2020 15:02:16 01/24/2020 09:05:31 Migraine 81741168 G43.909 Hx of migraines since she was a teenage and feels like they are coming more frequently and getting worse. They are located right above her eyes bilaterall y and near occipital lobe.She gets them 3x/week and they can last between 24-48 hours.She has been to the ER multiple times for migraine treatments .Has tried sumatripta n before but provided her with no relief.Use d to see neurology in the past but has not been seen in 2 years.Symp toms include dizziness, photophobi a, phonophobi a, nausea, vomiting, blurry vision and paresthesi as of the face during her migraines. - will send referral to neurology- will start her on topiramate , start with 1 tablet qhs x 1 week and then increase to tablets qhs Angioedema [id number] T78. 3XXD States she is suffering from a form of angioedema x 3 years but no one has been able to properly diagnose her.Descri bes her flares as facial swelling, tongue swelling, forehead bulging, face develops red splotches, skin feels tight, burning of her skin, and pain.Denie s allergy to food/medic ation/envi romental factorsSta carlee she has had allergy testing completed in the past but normalDoes not take any medication s that may cause angioedema . Denies family history of angioedema . On PE: no swelling present at this time- patient feels like I have not been able to help her chronic swelling issue and wants to be seen by an MD, she put in a request to see Dr. Amado, just waiting for response to switch providers [id number] MD Shelia Bowser (Adult Med) [address] [place] [phone] 0 02/24/2020 10:31:33 02/24/2020 12:12:02 Angioedema [id number] T78.3XXA Asthma 460182417 J45.90 9 Reinforced daily use of Wixela Gastroesop hageal reflux disease 091026618 K21.9 Migraine 65495152 G43.90 9 Aching pain 79573918 R52 Polycystic ovary syndrome 759140867 E28.2 Obesity 714338047 E66.9 [id number] Frank Gomez MD [facility] (Adult Med) [address] [place] [phone] 0 09/08/2020 11:37:59 09/09/2020 11:44:34 Angioedema 74245585 T78.3XXA Migraine 53021237 G43.90 9 Cellulitis 763275410 L03 .90 Family his tory of cancer of colon 985325935 Z80.0 Discussed colonoscop y. Pt will address later [id number] DIMA SANCHEZ (B[facility]G [facility]WER) [address] [place] [address] [phone] 03/04/2021 15:29:50 03/30/2021 06:54:04 Acute urinary tract infection [id number] N39.0 UA c/w UTI. Will treat empiricall y, follow up culture. Advised to increase water intake. Avoid sugary drinks. Discussed proper wiping techniques . Gynecologi c examination 94399682 Z01.419 -clinical breast & pelvic examinatio ns completed today, vulvar abscess noted-cerv ical cancer screening: last Pap 08/15/17, negative. Updated today.-Edu cated osteoporos is prevention including calcium rich diet, weight bearing exercise. Will start supplement .-Counsele d regarding prevention of STDs and condom use-RTC in 1yr Venereal d isease screening 178762879 Z11.3 Abnormal discharge noted. Nuswab completed, treat pending results. Safe sex practices discussed. Obesity 315197392 E66.9 BMI 39.8. Diet high in fruits and vegetables . Limit fat, sugar, and processed foods. Exercise at least 30 minutes 5x/week. Abscess of vulva 4618099 1 N76.4 Purulent drainage on exam, culture taken. Empiric abx as below. Advised warm compresses [id number] DIMA OLSON (Adult Med) [address] [place] [phone] 09/24/2021 10:38:00 09/27/2021 11:32:03 Polycystic ovary syndrome 347205810 E28.2 Has tried Progestero ne only pills in the past and metformin which she stopped due to persistent diarrhea. She is against all forms of control- restart Metformin at a lower dose with the plan to titrate up to higher dose again- heat pack, ibuprofen for pain with periods Urinary tr act infectious disease 65375746 N39.0 Intermitte nt dysuria, frequency, urgency since May 2021. Has been taking AZO and increasing water intake which resolve symptoms shortly. Last took AZO on 09/18/21.- UA showed UTI- start Bactrim- continue drinking lots of water Venereal d isease screening 769331039 Z11.3 Pt's is in and out of her life. She contracted Trich form him in 2019. In May 2021 she had intercours e with her and the condom broke so she is concerned for STD with her irritative urinary symptoms.- will call pt with results Asthma 207016579 J45.90 9 Hx of asthma. She has been out of her maintenanc e meds since May 2021. She states her asthma is worse after working out. She has recently been using an inhaler.Pt states she only smokes socially- will provide 1 refill of albuterol inhaler- encouraged pt to f/u w/ PCP for additional refills Angioedema 57246942 T78. 3XXA States she is suffering from a form of angioedema x 3 years but no one has been able to properly diagnose her.Descri bes her flares as facial swelling, tongue swelling, forehead bulging, face develops red splotches, skin feels tight, burning of her skin, and pain.Denie s allergy to food/medic ation/envi romental factorsSta carlee she has had allergy testing completed in the past but normalDoes not take any medication s that may cause angioedema . Denies family history of angioedema . On PE: no swelling present at this time- pt recently switch providers as she wanted to be seen by an MD for this- encouraged pt to f/u w/ PCP [id number] DIMA OLSON (Adult Med) [address] [place] [phone] 07/28/2022 14:45:07 08/02/2022 13:59:56 Obesity 473322298 E66.9 Advised decreased portion sizes, good food choices, limited eating out or fast food and eliminate soda and juice from diet. Advised physical activity daily and offered encouragem ent to continue with positive changes made so far. test positive 966186539 Z32.01 LMP 2022 , states it was a few days late and shorter than normal. She took two tests at home which were positive. Was not on control.Suhas august is excited to be but very nervous due to history of multiple miscarriag es. Was recently at the hospital for tooth infection and UTI, was started on Augmentin and macrobid and diflucan. She has completed these since. Has zofran at home for nausea as needed and wondering about her famotidine for her GERD. Takes tylenol and ibuprofen PRN for her intermitte nt pain. Takes steroids on a frequent basis for her angioedema . - test positive in the office today- serum labs drawn- informatio n given to patient- work on quitting smoking marielena- will get scheduled upstairs for NOB- discussed medication s with her today including ones safe for her and fetus: try pyridoxine first for nausea, but okay to take zofran if needed. Avoid omeprazole , famotidine okay as needed. Tylenol preferred. Will need to discuss steroid use further with oBGYN. Recurrent urinary tract infection 054950556 N39.0 Hx of recurrent UTIs, recently treated with macrobid at the ER and requesting repeat test to ensure infection is gone- UA showed trace LE- will send for culture to ensure Gastroesop hageal reflux disease 317855582 K21.9 Admits worsening of her symptoms the last few weeksAvoid omeprazole , famotidine okay as needed. Past pregn winnie history of miscarriage 663025475 Z87.59 History of multiple miscarriag es. She is requesting to be started on progestero ne like she was in the past by Dr. St because that seemed to work for her with her last child.She is taking two baby aspirins at home currently. Maternal and consult note reviewed from 08/2017, no major rec.- will discuss with Margaret and get back with patient on tx options Health Concerns Section Related Observation LastModified by Organization Gabbie ls LastModified Time None Recorded Concern Status LastModified by Organization Details LastModified Time None Recorded Advance Directives Directive N: Payers Encounter Date Sequence Insurance Name Policy Number Policy Velazquez Covered Member ID Velazquez Member ID Guarantor Name 02/24/2020 1 [facility] PRIOR TO 01/28/2021 (MEDICAID REPLACEMENT - HMO) Gail Lilliana [id number] [facility] 09/08/2020 1 [facility] PRIOR TO 01/28/2021 (MEDICAID REPLACEMENT - HMO) Gailfarheen Rankinland [id number] [facility] 03/04/2021 1 [facility] PRIOR TO 01/28/2021 (MEDICAID REPLACEMENT - HMO) Gail Lilliana [id number] [facility] 09/24/2021 1 [facility] ON OR AFTER 01/28/21 (MEDICAID REPLACEMENT - HMO) Gailfarheen [place] [id number] [facility] 07/28/2022 1 [facility] ON OR AFTER 01/28/21 (MEDICAID REPLACEMENT - HMO) Gailfarheen [place] [id number] Gail Lilliana Notes Date Note Type Note Provider Name and Address Organization Details Recorded Time 02/24/2020 text/html Has been dealing wit multiple medical problems including migraine headaches, angioedema, asthm. and generalized body aches. She does smoke. She has a sensation of swelling all over. Frank Gomez MD Attn: Accounting[address] [facility], [place], [address], [facility] 02/24/2020 12:11:42 09/08/2020 text/html Hospitalized two weeks ago for cellulitis of LLE. She was treated with Septra DS with partial resolution of infection. She has persistent localized redness in her lower right leg as well as swelling. Frank Gomez MD Attn: Accounting,[address] [facility], [place], [address], [facility] 09/08/2020 14:53:43 03/04/2021 text/html Annual GYNReport ed bypatient.Menstrua l cycle:Normal menses Urinary symptoms:No hematuria; No incontinence Vulva:Painful genital lesion Vagina:Normal vaginal discharge Breast:No breast pain; No breast lump; No nipple discharge Current Contraception:Bobbi h control not practiced Sexual complaints:No sexual complaints; No pain during intercourse; Normal libido Menopausal Symptoms:No menopausal symptoms; Normal vaginal lubrication Psychological symptoms:No depression; No anxiety; No PMDD Preventive measures:Encourage self breast examination; Encourage regular exercise; Encourage no tobacco use; Followed with Q3 year pap smear and high risk HPV typing 30 yo CF with history of PCOS presents for evaluation of lesion on R vulva x 5 days. She thinks it is a boil and is tender. She also reports h/o UTI symptoms that have now resolved. DIMA SANCHEZ Attn: Accounting,[address] [facility], [place], [address], [facility] 04/08/2021 15:19:41 09/24/2021 text/html 31 year old femanabel ayala with a history of PCOS and Trichomonas presents with irregular periods, menorrhagia, and STD check. PCOS: Pt was diagnosed in 2015 and has tried progesterone and metformin in the past to regulate periods. She stopped taking the metformin due to persistent diarrhea. She is against taking all forms of control. She states she has had menorrhagia since 2018 but it has worsened in the last 4 months. She is also having sharp stabbing LLQ pain in the pubic area when she is menstruating. She admits to dysparunia. STD: Pt's is in and out of her life. She contracted Trichomonas from him in 2019 and she recently had sexual intercourse with him in May 2020 and the condom broke. Since then she has had off and on irritative urinary symptoms which she has been taking AZO pills and increasing her water intake for. She denies dysuria, frequency, urgency, or discharge today. Pt has been working out. She was 89 in Mar 2021 when she started and is now 207. Pt has continued issues with her angioedema, encouraged her to follow up with her PCP. She has been having issues with her asthma and is out of her inhaler. Will refill inhaler but recommended follow up with PCP. She also has apneic episodes which her and son have witness. Her insurance will not cover a sleep study. Again, encouraged pt to follow up with her PCP about this. DIMA OLSON Attn: Accounting[address] [facility], [place], [address], [facility] 09/24/2021 16:56:20 07/28/2022 text/html 32 year old esther ayala with a history of familial angioedema, PCOS, GERD, and multiple miscarriages presents today for possible . LMP 2022, states it was a few days late and shorter than normal. She took two tests at home which were positive. Was not on control. She is excited to be but very nervous due to history of multiple miscarriages. She is requesting to be started on progesterone like she was in the past by Dr. St because that seemed to work for her with her last child. She is taking two baby aspirins at home currently. Stopped all of her medications when she found out she was . Was recently at the hospital for tooth infection and UTI, was started on Augmentin and macrobid and diflucan. She has completed these since. Has zofran at home for nausea as needed and wondering about her famotidine for her GERD. Takes tylenol and ibuprofen PRN for her intermittent pain. Takes steroids on a frequent basis for her angioedema. Denies fever, chills, nausea, vomiting, headaches, chest pain, SOB, abdominal pain, diarrhea, constipation, or dysuria. DIMA OLSON Attn: Accounting,[address] [facility], [place], [address], [facility] 07/28/2022 17:30:12 OBGyn Episode Ob Episode Information Episode Created Date Number of Fetuses Patient Bloodtype Patient rh Status Prepregnancy Weight lbs Domestic Partner Domestic Partner Phone Father Name Salesperson [employer] Status 05/19/20 16 1 CLOSED Fetus Data First Name Last Name Admitted to NICU Weight (g) Sex Living Outcome Pediatric Complications Fetus ID Race Codes Race Delivery Type M , Spontane ous [id number] Gurvinder Calculation Initial Gurvinder Date Initial Exam Date Initial Exam Provider Initial Ultrasound Date Last Menstrual Period Date Ultra Sound Weeks Gestation 0 Eighteen To Twenty Week Gurvinder Update Ultra Sound Date Fundal Height At Umbil Quickening Date Ultra Sound Latest Weeks Gestation Final Gurvinder Confirmed By Final Gurvinder Confirmed Date Final Gurvinder Date Ultra Sound Latest Days Gestation 0 0 Menstrual History Last Menstrual Date Menses Monthly On Bcp Conception Prior Menses Frequency Hcg Plus Date Menarche Onset Age Delivery Information Delivery Date Delivery Type Labor Anesthesia Weeks Gestation Incision Type Labor Labor Length Hrs Delivered By Post Complications Tubal Sterilization Discharge Date Comments 6 7.2 Discharge Information Feeding Method Contraceptive Method Maternal HG B and HCT Levels Ob Episode Information Episode Created Date Number of Fetuses Patient Bloodtype Patient rh Status Prepregnancy Weight lbs Domestic Partner Domestic Partner Phone Father Name Salesperson [employer] Status 05/19/20 16 1 CLOSED Fetus Data First Name Last Name Admitted to NICU Weight (g) Sex Living Outcome Pediatric Complications Fetus ID Race Codes Race Delivery Type , Spontane ous [id number] Gurvinder Calculation Initial Gurvinder Date Initial Exam Date Initial Exam Provider Initial Ultrasound Date Last Menstrual Period Date Ultra Sound Weeks Gestation 0 Eighteen To Twenty Week Gurvinder Update Ultra Sound Date Fundal Height At Umbil Quickening Date Ultra Sound Latest Weeks Gestation Final Gurvinder Confirmed By Final Gurvinder Confirmed Date Final Gurvinder Date Ultra Sound Latest Days Gestation 0 0 Menstrual History Last Menstrual Date Menses Monthly On Bcp Conception Prior Menses Frequency Hcg Plus Date Menarche Onset Age Delivery Information Delivery Date Delivery Type Labor Anesthesia Weeks Gestation Incision Type Labor Labor Length Hrs Delivered By Post Complications Tubal Sterilization Discharge Date Comments 5 5.3 Discharge Information Feeding Method Contraceptive Method Maternal HG B and HCT Levels Ob Episode Information Episode Created Date Number of Fetuses Patient Bloodtype Patient rh Status Prepregnancy Weight lbs Domestic Partner Domestic Partner Phone Father Name Salesperson [employer] Status 05/19/20 16 1 CLOSED Fetus Data First Name Last Name Admitted to NICU Weight (g) Sex Living Outcome Pediatric Complications Fetus ID Race Codes Race Delivery Type , Spontane ous [id number] Gurvinder Calculation Initial Gurvinder Date Initial Exam Date Initial Exam Provider Initial Ultrasound Date Last Menstrual Period Date Ultra Sound Weeks Gestation 0 Eighteen To Twenty Week Gurvinder Update Ultra Sound Date Fundal Height At Umbil Quickening Date Ultra Sound Latest Weeks Gestation Final Gurvinder Confirmed By Final Gurvinder Confirmed Date Final Gurvinder Date Ultra Sound Latest Days Gestation 0 0 Menstrual History Last Menstrual Date Menses Monthly On Bcp Conception Prior Menses Frequency Hcg Plus Date Menarche Onset Age Delivery Information Delivery Date Delivery Type Labor Anesthesia Weeks Gestation Incision Type Labor Labor Length Hrs Delivered By Post Complications Tubal Sterilization Discharge Date Comments 6 6 Discharge Information Feeding Method Contraceptive Method Maternal HG B and HCT Levels Ob Episode Information Episode Created Date Number of Fetuses Patient Bloodtype Patient rh Status Prepregnancy Weight lbs Domestic Partner Domestic Partner Phone Father Name Salesperson [employer] Status 09/13/19 18 1 CLOSED Fetus Data First Name Last Name Admitted to NICU Weight (g) Sex Living Outcome Pediatric Complications Fetus ID Race Codes Race Delivery Type 3259.96 5704 M Full Term [id number] Vaginal Gurvinder Calculation Initial Gurvinder Date Initial Exam Date Initial Exam Provider Initial Ultrasound Date Last Menstrual Period Date Ultra Sound Weeks Gestation 0 Eighteen To Twenty Week Gurvinder Update Ultra Sound Date Fundal Height At Umbil Quickening Date Ultra Sound Latest Weeks Gestation Final Gurvinder Confirmed By Final Gurvinder Confirmed Date Final Gurvinder Date Ultra Sound Latest Days Gestation 0 0 Menstrual History Last Menstrual Date Menses Monthly On Bcp Conception Prior Menses Frequency Hcg Plus Date Menarche Onset Age Delivery Information Delivery Date Delivery Type Labor Anesthesia Weeks Gestation Incision Type Labor Labor Length Hrs Delivered By Post Complications Tubal Sterilization Discharge Date Comments 0 Regional-Ep idural 39 Discharge Information Feeding Method Contraceptive Method Maternal HG B and HCT Levels Ob Episode Information Episode Created Date Number of Fetuses Patient Bloodtype Patient rh Status Prepregnancy Weight lbs Domestic Partner Domestic Partner Phone Father Name Salesperson [employer] Status 08/15/19 18 1 A Positive 202 [place] [phone] Dr Polanco CLOSED Fetus Data First Name Last Name Admitted to NICU Weight (g) Sex Living Outcome Pediatric Complications Fetus ID Race Codes Race Delivery Type Whitney Abdi e false 3316.89 15 M true Full Term 50522 2106-3 White Primary Problems Problem Notes boy per ultrasound, 80% sure , its a boy, name Hunter Lamb, circumcision is yes, bottle feeding, data center consultant is going to be dr. polanco in [facility] none per patient. 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 [id number] Methicillin resistant Staphylococcus aureus infection 201706431 Gastroesophageal reflux disease 03/21/2018 389579180 Breech presentation 03/06/2018 [id number] Gurvinder Calculation Initial Gurvinder Date Initial Exam Date Initial Exam Provider Initial Ultrasound Date Last Menstrual Period Date Ultra Sound Weeks Gestation 03/25/2018 08/15/2017 [email or web address] 08/16/2017 06/12/2017 8 Eighteen To Twenty Week Gurvinder Update Ultra Sound Date Fundal Height At Umbil Quickening Date Ultra Sound Latest Weeks Gestation Final Gurvinder Confirmed By Final Gurvinder Confirmed Date Final Gurvinder Date Ultra Sound Latest Days Gestation 08/16/19 18 8 [email or web address] 02/20/2018 03/25/20 18 3 Pre- Flowsheet Flowsheet Date 08/15/2017 Mckeon Score Blood Edema Fundus Height Fundus Units Glucose Ketones Leukocytes Nitrite Labor Signs Protein Cervic Dilation Cervic Effacement Cervic Station Type Weight in lbs Pre/Post Dialysis Refused 2.29973405249552 BP Diastolic BP Location Tested BP Systolic BP Type 78 126 sitting Fetus Heart Rate Present Fetus Movement Comments nob Flowsheet Date 09/01/2017 Mckeon Score Blood Edema Fundus Height Fundus Units Glucose Ketones Leukocytes Nitrite Labor Signs Protein Cervic Dilation Cervic Effacement Cervic Station Type Weight in lbs Pre/Post Dialysis Refused 197.934887265177 BP Diastolic BP Location Tested BP Systolic BP Type Fetus Heart Rate Present Fetus Movement Comments Flowsheet Date 09/13/2017 Mckeon Score Blood Edema Fundus Height Fundus Units Glucose Ketones Leukocytes Nitrite Labor Signs Protein Cervic Dilation Cervic Effacement Cervic Station Type Weight in lbs Pre/Post Dialysis Refused 197.858540690837 BP Diastolic BP Location Tested BP Systolic BP Type 60 98 sitting Fetus Heart Rate Present Fetus Movement Comments Flowsheet Date 10/11/2017 Mckeon Score Blood Edema Fundus Height Fundus Units Glucose Ketones Leukocytes Nitrite Labor Signs Protein Cervic Dilation Cervic Effacement Cervic Station neg none 16 wks none negative Other (see comments ) trace Type Weight in lbs Pre/Post Dialysis Refused 199.093367048931 BP Diastolic BP Location Tested BP Systolic BP Type 70 108 sitting Fetus Heart Rate Present A 153 Present Fetus Movement A Yes Comments C/o persistent nausea and he artburn (currently taking omeprazole in the mornings); AFP ordered today; followed with monthly US; needs to schedule three hour GTT Flowsheet Date 11/08/2017 Mckeon Score Blood Edema Fundus Height Fundus Units Glucose Ketones Leukocytes Nitrite Labor Signs Protein Cervic Dilation Cervic Effacement Cervic Station Type Weight in lbs Pre/Post Dialysis Refused 199.731109050792 BP Diastolic BP Location Tested BP Systolic BP Type 64 110 sitting 68 118 sitting Fetus Heart Rate Present Fetus Movement Comments Flowsheet Date 12/06/2017 Mckeon Score Blood Edema Fundus Height Fundus Units Glucose Ketones Leukocytes Nitrite Labor Signs Protein Cervic Dilation Cervic Effacement Cervic Station neg none 24 cm none small Backpain neg Type Weight in lbs Pre/Post Dialysis Refused BP Diastolic BP Location Tested BP Systolic BP Type 64 116 sitting Fetus Heart Rate Present A 138 Present Fetus Movement A Yes Comments DIANA, scripts for nausea and ingestion. heterzygous mthfr Flowsheet Date 01/04/2018 Mckeon Score Blood Edema Fundus Height Fundus Units Glucose Ketones Leukocytes Nitrite Labor Signs Protein Cervic Dilation Cervic Effacement Cervic Station trace none 26 cm none trace none 1+ Type Weight in lbs Pre/Post Dialysis Refused 187.678300954069 BP Diastolic BP Location Tested BP Systolic BP Type 64 102 sitting Fetus Heart Rate Present A 145 Present Fetus Movement A Yes Comments DIANA. UA obtained. TDAP admin istered. 3hr GTT and 3rd trimester US ordered. Monthly B12. Flowsheet Date 01/23/2018 Mckeon Score Blood Edema Fundus Height Fundus Units Glucose Ketones Leukocytes Nitrite Labor Signs Protein Cervic Dilation Cervic Effacement Cervic Station none 31 wks none Type Weight in lbs Pre/Post Dialysis Refused 184.617109445223 BP Diastolic BP Location Tested BP Systolic BP Type 60 102 sitting Fetus Heart Rate Present A 130 Present Fetus Movement A Yes Comments DIANA. Patient was unable to g adrien urine sample. Complains of severe nausea, vomiting and heartburn. Has not been able to fruit or nut picker prescriptions due to insurance changes. Rx ASA, progesterone, folic, zofran, reglan, and ranitidine. Advised to eat bananas in mornings and evenings. B12 IM given today. Flowsheet Date 02/14/2018 Mckeon Score Blood Edema Fundus Height Fundus Units Glucose Ketones Leukocytes Nitrite Labor Signs Protein Cervic Dilation Cervic Effacement Cervic Station neg none 32 cm none trace Cramping trace Type Weight in lbs Pre/Post Dialysis Refused 186.239453172116 BP Diastolic BP Location Tested BP Systolic BP Type 68 108 sitting Fetus Heart Rate Present A 142 Present Fetus Movement A Yes Comments Breech on last US 02/09/18. C -section scheduled 03/16/18 for Breech presentation.C/o Anger issues- denies counselling referral, has not taken gabapentin, sertraline, or wellbutrin when prescribed for anxiety, depression, or anger. Flowsheet Date 02/28/2018 Mckeon Score Blood Edema Fundus Height Fundus Units Glucose Ketones Leukocytes Nitrite Labor Signs Protein Cervic Dilation Cervic Effacement Cervic Station neg none 36 wks none negative none neg Type Weight in lbs Pre/Post Dialysis Refused 187.552678367644 BP Diastolic BP Location Tested BP Systolic BP Type 64 98 sitting Fetus Heart Rate Present A 145 Present Fetus Movement A Yes Comments Flowsheet Date 03/06/2018 Mckeon Score Blood Edema Fundus Height Fundus Units Glucose Ketones Leukocytes Nitrite Labor Signs Protein Cervic Dilation Cervic Effacement Cervic Station neg none 37 wks none negative Backpain neg 0cm Type Weight in lbs Pre/Post Dialysis Refused [phone] BP Diastolic BP Location Tested BP Systolic BP Type 52 98 sitting Fetus Heart Rate Present A 150 Present Fetus Movement A Yes Comments c/s for breech 03/23 Flowsheet Date 03/14/2018 Mckeon Score Blood Edema Fundus Height Fundus Units Glucose Ketones Leukocytes Nitrite Labor Signs Protein Cervic Dilation Cervic Effacement Cervic Station Type Weight in lbs Pre/Post Dialysis Refused BP Diastolic BP Location Tested BP Systolic BP Type Fetus Heart Rate Present Fetus Movement Comments Flowsheet Date 03/21/2018 Mckeon Score Blood Edema Fundus Height Fundus Units Glucose Ketones Leukocytes Nitrite Labor Signs Protein Cervic Dilation Cervic Effacement Cervic Station neg none 31 cm none trace none neg 0cm Type Weight in lbs Pre/Post Dialysis Refused [id number] BP Diastolic BP Location Tested BP Systolic BP Type 62 95 Fetus Heart Rate Present A 132 Present Fetus Movement A Yes Comments GBS postive. Induction plann ed for 03/21/2018 Flowsheet Date 03/29/2018 Mckeon Score Blood Edema Fundus Height Fundus Units Glucose Ketones Leukocytes Nitrite Labor Signs Protein Cervic Dilation Cervic Effacement Cervic Station Type Weight in lbs Pre/Post Dialysis Refused BP Diastolic BP Location Tested BP Systolic BP Type Fetus Heart Rate Present Fetus Movement Comments Menstrual History Last Menstrual Date Menses Monthly On Bcp Conception Prior Menses Frequency Hcg Plus Date Menarche Onset Age 1106/12/2017 Genetic Screening And Infection History Question Response Note Patient's Age Will Be 35 Yea rs Or Older At Estimated Date of Delivery false Thalassemia (Prydeinig, Montenegrin, Mediterranean, Or Background): MCV < 80 false Neural Tube Defect (Meningom yelocele, Spina Bifida, Or Anencephaly) false Congenital Heart Defect false Down Syndrome false Constantine-Sachs (eg, Anabaptist, Cajun, Chinese-Belarusian) f alse Parul Disease false Sickle Cell Disease Or Trait () true Father of baby Hemophilia Or Other Blood Disorders false Muscular Dystrophy false Cystic Fibrosis false Aurora's Chorea false Mental Retardation/Autism false If Yes, Was Person Tested For Fragile X? false Other Inherited Genetic Or Chromosomal Disorder false Maternal Metabolic Disorder (eg, Type 1 Diabetes , PKU) false Patient Or Baby's Father Had A Child With Defects Not Listed Above false Recurrent Loss, Or A Stillbirth true 3 Medications (including Suppl ements, Vitamins, Herbs, OTC Drugs), Illicit/Recreational Drugs, Alcohol true If Yes, Agent(s) And Strength/Dosage false Any Other Genetic History false Live With Someone With TB Or Exposed To TB false Patient Or Partner Has History Of Genital Herpes false Rash Or Viral Illness Since Last Menstrual Perio d false History Of STD, Gonorrhea, Chlamydia, HPV, Syphi lis true Trich Other Infection History false Plans and Education First Trimester Discussed Date Discussion Item Discussion Note Discuss ed By 10/11/2017 Anticipated course o f care [email or web address] 10/11/2017 Alcohol [email or web address] 10/11/2017 Intimate partner violence cb [email or web address] 10/11/2017 Environmental/work hazards c [email or web address] 10/11/2017 Screening for aneuploidy cbr adshaw5 10/11/2017 Nutrition counseling ; special diet; dietary precautions (mercury, listeriosis) [email or web address] 10/11/2017 Childbirth classes/h ospital facilities given infor on classes at [facility] and Carloz Stark in [place], [facility] [place] cb10/11/2017 HIV and other routin e tests at initial ob visit 10/11/2017 Risk factors identif ied by history 10/11/2017 Weight gain counseling [facility]11[facility]2017 Exercise cb10/11/2017 Teratogens cb10/11/2017 Use of any medicatio ns (including supplements, vitamins, herbs, or OTC drugs) cb10/11/2017 03/14/18 Bottle, cb-rma cbr adshaw10/11/2017 Sexual activity cb10/11/2017 Tobacco/smoking cess ation counseling (ask, advise, assess, assist, and arrange) 10/11/2017 Illicit/recreational drugs c [facility]10/11/2017 Dental care given dental con sent at initial ob visit 10/11/2017 Travel 10/11/2017 Seat belt use 10/11/2017 Indications for ultrasonography cb10/11/2017 Avoidance of saunas or hot tubs 10/11/2017 Toxoplasmosis precau tions (cats/raw meat) Second Trimester Discussed Date Discussion Item Discussion Note Discuss ed By 03/14/2018 Selecting a care provider 03/14/18 Yoel Copeland, osman-03/14/2018 family planning/tubal sterilization Third Trimester Discussed Date Discussion Item Discussion Note Discuss ed By 03/14/2018 Anesthesia plans 03/14/18 yes to epidural, pt states baby breech position, cb-rma 03/14/2018 Circumcision yes Postterm counseling 03/14/18 bab y boy, yes to circ, cb-rma 03/14/2018 Labor signs given wtc/wlb Delivery Information Delivery Date Delivery Type Labor Anesthesia Weeks Gestation Incision Type Labor Labor Length Hrs Delivered By Post Complications Tubal Sterilization Discharge Date Comments 8 [facility] 39.[address] e false Dr. St None false 03/24/2018 Pediatric henry: Dr. Polanco in [place], [place] Discharge Information Feeding Method Contraceptive Method Maternal HG B and HCT Levels Bottle None Ob Episode Information Episode Created Date Number of Fetuses Patient Bloodtype Patient rh Status Prepregnancy Weight lbs Domestic Partner Domestic Partner Phone Father Name Salesperson [employer]obiles Status 08/15/19 18 1 CLOSED Fetus Data First Name Last Name Admitted to NICU Weight (g) Sex Living Outcome Pediatric Complications Fetus ID Race Codes Race Delivery Type , Spontane ous [id number] Gurvinder Calculation Initial Gurvinder Date Initial Exam Date Initial Exam Provider Initial Ultrasound Date Last Menstrual Period Date Ultra Sound Weeks Gestation 0 Eighteen To Twenty Week Gurvinder Update Ultra Sound Date Fundal Height At Umbil Quickening Date Ultra Sound Latest Weeks Gestation Final Gurvinder Confirmed By Final Gurvinder Confirmed Date Final Gurvinder Date Ultra Sound Latest Days Gestation 0 0 Menstrual History Last Menstrual Date Menses Monthly On Bcp Conception Prior Menses Frequency Hcg Plus Date Menarche Onset Age Delivery Information Delivery Date Delivery Type Labor Anesthesia Weeks Gestation Incision Type Labor Labor Length Hrs Delivered By Post Complications Tubal Sterilization Discharge Date Comments 7 8 Discharge Information Feeding Method Contraceptive Method Maternal HG B and HCT Levels
--- OUTSIDE RECORDS SUMMARY | 2025-01-05 06:05 | XMS_ITS | CONTINUITY OF CARE DOCUMENT ---
Author Name ranjith claulan Address Unknown Organization [facility] Address [address] [place] [address] Phone [phone] Care Team Providers Care Scientific Investigator Name Role Phone Mana MENDEZ, Cierra Unavailable RICHARD CHAHAL MD Unavailable [phone] RICHARD CHAHAL MD Unavailable [phone] PROBLEMS Condition Status Date Provider Notes Screening active Nicci Wells BUTTER MELTER Palpitations active Nicci Wells BUTTER MELTER Chest pain, intermittent active Nicci reese BUTTER MELTER Shortness of breath active Nicci Wells BUTTER MELTER History of methamphetamine abuse active Gricelda Wells BUTTER MELTER Hereditary angioedema active Nicci beasley BUTTER MELTER Tobacco abuse active Nicci Wells BUTTER MELTER Obesity active Nicci Wells BUTTER MELTER Marijuana use active Nicci Wells BUTTER MELTER Snoring active Nicci Wells BUTTER MELTER ? Sleep apnea active iNcci Wells BUTTER MELTER Vitamin D deficiency active Nicci tello BUTTER MELTER Vitamin B12 deficiency active Nicci landry BUTTER MELTER Polycystic ovary syndrome active Nicci carver BUTTER MELTER Acid reflux active Nicci Wells BUTTER MELTER ENCOUNTERS Date Type Provider Location Encounter Diag nosis - In-person encounter Office Visit Cierra Adair MD [place] Office ScreeningPalpitationsChest pain, intermittentShortness of breathHistory of methamphetamine abuseHereditary angioedemaTobacco abuseObesityMarijuana useSnoring? Sleep apneaVitamin D deficiencyVitamin B12 deficiencyPolycystic ovary syndromeAcid reflux VITAL SIGNS Date Observation Value Provider blood pressure, diastolic 80 mm[Hg] Sharon nkLogic blood pressure, systolic 122 mm[Hg] Jodi kLogic Body Mass Index (Ratio) 39.82 kg/m2 Taew on Don blood pressure, cuff size large [facility], diastolic 80 mm[Hg] [facility] blood pressure, systolic 122 mm[Hg] Renea lucinda Abdullahi oxygen saturation, oximetry 96 % Cassidy Abdullahi respiratory rate E&M 16 /min Cassidy oviedo pulse rate 77 /min Cassidy Phipps lder weight E&M 232 [lb_av] Cassidy Moise lder height E&M 64 [in_i] Cassidy Moise [facility] ALLERGIES Allergy Name Onset Date Reaction Criticality Status SHELLFISH High Criticality active TUNA High Criticality active RESULTS Date Observation Value Provider Reference Range Interpretation Location 8 B-type natriuretic peptide 17.5 pg/mL [facility] 0.0-100.0 8 B-12, serum 387 pg/mL [facility] 232-1245 8 c-reactive protein, quantitative, serum 5.26 mg/L [facility] 0.00-3.00 High 8 ferritin, serum 62 ng/mL [facility] 15-150 8 magnesium, serum 2.0 mg/dL [facility] 1.6-2.3 8 iron saturation percent, serum 26 % [facility] 15-55 8 iron, serum 79 ug/dL [facility] 27-159 8 iron binding capacity, unsaturated 230 ug/dL [facility] 611-522 8705/09/1 8 iron binding capacity, total 309 ug/dL [facility] 182-029 8276/09/1 8 free thyroxine index 1.5 [facility] 1.2-4.9 8 triiodothyronine resin uptake 25 % [facility] 24-39 8 thyroxine, serum, total 6.1 ug/dL [facility] 4.5-12.0 8 thyroid stimulating hormone, serum 1.040 u[IU]/mL [facility] 0.450-4.500 8 hemoglobin A1C, blood, as % of total hemoglobin 5.8 % LinkLog 4.8-5.6 High 8 lipoprotein, beta, serum, point, quantitative, calculated 113 mg/dL [facility] 0-99 High 8 HDL cholesterol, serum 34 mg/dL [facility] >39 Low 8 triglyceride, serum, random 183 mg/dL [facility] 0-149 High 8 cholesterol, serum 179 mg/dL [facility] 809-570 4162/09/1 8 platelet count 261 X10E3/UL [facility] 011-451 5489/09/1 8 red blood cell distribution width 13.3 % Link[facility] 11.7-15.4 8 mean corpuscular hemoglobin concentration, RBC 33.4 G/DL [facility] 31.5-35.7 8 mean corpuscular hemoglobin, RBC 29.5 pg [facility] 26.6-33.0 8 mean corpuscular volume, RBC 88 fL [facility] 79-97 8 hematocrit, blood 39.5 % [facility] 34.0-46.6 8 hemoglobin, blood 13.2 g/dL [facility] 11.1-15.9 8 erythrocyte (RBC) count 4.47 X10E6/UL LinkLog 3.77-5.28 8 leukocyte count, blood 6.2 X10E3/UL [facility] 3.4-10.8 8 alanine aminotransferase (SGPT), serum 23 1/L [facility] 0-32 8 aspartate aminotransferase (SGOT), serum 18 1/L [facility] 0-40 8 alkaline phosphatase, serum 71 1/L [facility] 44-121 8 bilirubin, serum, total 0.3 mg/dL [facility] 0.0-1.2 8 albumin/globulin ratio, serum 1.5 [facility] 1.2-2.2 8 globulin, serum 2.6 [facility] 1.5-4.5 8 albumin, serum 3.9 g/dL [facility] 3.8-4.8 8 protein, total, serum 6.5 g/dL [facility] 6.0-8.5 8 calcium, serum 8.8 mg/dL [facility] 8.7-10.2 8 carbon dioxide, venous blood 23 mmol/L [facility] 20-29 8 chloride, serum 108 mmol/L [facility] 96-106 High 8 potassium, serum 4.0 mmol/L [facility] 3.5-5.2 8 sodium, serum 143 mmol/L [facility] 503-254 0682/09/1 8 urea nitrogen/creatinine ratio, serum 26 [facility] 9-23 High 8 eGFR if 113 mL/min/{1 .73_m2} [facility] >59 8 eGFR if not 98 mL/min/{1 .73_m2} [facility] >59 8 creatinine, serum 0.80 mg/dL [facility] 0.57-1.00 8 urea nitrogen, blood 21 mg/dL [facility] 6-20 High 8 blood glucose, random 99 mg/dL [facility] 65-99 SOCIAL HISTORY Date Observation Value Provider smoking/tobacco cess ation, patient education and counseling yes Niccidev Fishjl MUNGUIA number of years as a smoker 17 a Cassidy Abdullahi smoking history, tot al pack/day 1/2 ppd Cassidy Abdullahi cigarette use yes Cassidy mak smoking status Current every day smoker K reji Abdullahi INSURANCE PROVIDERS Payer name Policy type / Coverage type [place] [employer] republic[place] [employer] MEDICAID (2) Medicaid [id number] ADVANCE DIRECTIVES Name Date DISCUSSED - NO DECISION MADE TREATMENT PLAN Date Name Performer [id number],C,r ecommend following with GI. will r/o cardiac cause including ECHO, routine stress, encouraged to not eat later in evening, elevate head of bed, OTC antiacids, avoid spicy/fatty/greasy foods, cut down smoking. Nicci Fenjl MUNGUIA [id number],C,follows with RN HOSPICE Nicci Fenjl MUNGUIA [id number],C,check labs Je marisolkera Fishjl BUTTER MELTER [id number],C,[facility] [id number],C,BMI 39.82 [facility]da [facility] MUNGUIA [id number],C,o besity and snoring. home sleep study Nicci Fenjl MUNGUIA [id number],C,c urrent smoker 1ppd/18yrs P FTs, Cxr, labs Nicci Fenjl MUNGUIA [id number],C,reports only marijuana use now Nicci Fenjl MUNGUIA [id number],C,PFTs, ECHO, h ome sleep study, labs Nicci Fenjl MUNGUIA [id number],C,w ill check 2 week telesentry, ECHO, labs, home stleep study, PFTs Nicci Fenjl MUNGUIA [id number],C,i ntermittent CP (see HPI), EKG with nonspecific T wave changes risk factors, including obesity, tobacco abuse, family hx. will check stress test routine, ECHO, telesentry monitor (2 weeks), will check labs Nicci Wells NP Electrophysiology:re commend following with GI. will r/o cardiac cause including ECHO, routine stress, encouraged to not eat later in evening, elevate head of bed, OTC antiacids, avoid spicy/fatty/greasy foods, cut down smoking. Nicci Wells NP Electrophysiology:follows with O B/MILITARY TECHNOLOGY SPECIALIST Nicci Wells NP Electrophysiology:check labs Gricelda Wells NP Electrophysiology:check labs Gricelda Wells NP Electrophysiology:BMI 39.82 Millicent Wells NP Electrophysiology:ob esity and snoring. home sleep study Nicci Wells NP Electrophysiology:cu rrent smoker 1ppd/18yrs P FTs, Cxr, labs Nicci Wells NP Electrophysiology:reports only m arijuana use now Nicci Abejl MUNGUIA Electrophysiology:PFTs, ECHO, ho me sleep study, labs Nicci Wells NP Electrophysiology:wi ll check 2 week telesentry, ECHO, labs, home stleep study, PFTs Nicci Wells NP Electrophysiology:in termittent CP (see HPI), EKG with nonspecific T wave changes risk factors, including obesity, tobacco abuse, family hx. will check stress test routine, ECHO, telesentry monitor (2 weeks), will check labs Nicci Priscilla MUNGUIA Date Name X-Ray, Chest - Routi ne Vitamin D, 25-Hydrox y VITAMIN B12/FOLATE, SERUM PANEL FERRITIN IRON AND TOTAL IRON BINDING CAPACITY Sleep Study Home DLCO - 94472 FRC - 69943 FVC - 95361 MAGNESIUM HEMOGLOBIN A1c CBC (H/H, RBC, INDIC ES, WBC, PLT) TSH, free T4, total T3 C-REACTIVE PROTEIN LIPID PANEL B TYPE NATRIURETIC P EPTIDE (BNP) COMPREHENSIVE METABO LIC PANEL, W/EGFR Stress Routine Complete Echo Monitor - Telemetry (Mobile Cardiac) HISTORY OF PROCEDURES Procedure Date Procedure Name Provider Procedure Notes S tatus Event Monitor Cierra Adair MD c ompleted EKG Cierra Adair MD comp leted
--- OUTSIDE RECORDS SUMMARY | 2025-01-05 06:05 | XMS_ITS | Clinical Summary ---
Author Organization [facility] Address [address] [place] [address] Care Team Providers Care Technical Sales Representatives Name Role Phone Marianne Castrejon PA-C Primary Care Provider + Source Comments [facility]non-owned Affiliates and Associated Physician Practices is amultiple site organization consisting of ambulatory clinics and hospital sitesin [place], [place], [place] and [place]. This disclosure is being madepursuant to the Care Everywhere program and may not contain all information available regarding this patient. Last updated 18.[facility] Allergies Active Allergy Reactions Criticality Noted Date Comments Penicillins Urticaria Medium 09/06/2017 Medications * Be aware that medications may not be up to date on this document. Alwaysverify current medications with the patient. Vit-Fe Fumarate-FA ( VITAMIN) 28-0.8 MG tablet Take 1 tablet by mouth once daily Active progesterone 200 mg 200 mg tablet Take 200 mg by mouth 2 times daily Active ondansetron (ZOFRAN) 4 MG tablet Take 4 mg by mouth every 8 hours as needed for Nausea/Vomiting Active aspirin (ASPIRIN) 81 MG tablet Take 81 mg by mouth 2 times daily Active famotidine (PEPCID) 20 MG tablet Take 20 mg by mouth 2 times daily Active acetaminophen (TYLENOL) 500 MG tablet Take 1,000 mg by mouth every 4 hours as needed for Fever or Pain Maximum allowable Acetaminophen amount = 4 Grams (4000 mg) / 24 hours. 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/05/2017 Tobacco smoking affecting , antepartum 09/05/2017 Depression affecting 09/05/2017 Anxiety 09/05/2017 Family History Medical History Relation Name Comments Diabetes - Type 2 Father Hypertension Father Diabetes - Type 2 Maternal Grandfather Cancer - Pancreatic Maternal Grandmother Diabetes - Type 2 Maternal Grandmother Hypertension Maternal Grandmother CAD (Coronary Artery Disease) Maternal Uncle 1 CAD (Coronary Artery Disease) Maternal Uncle 2 CAD (Coronary Artery Disease) Mother CVA Mother Cancer - Ovarian Mother Diabetes - Type 2 Mother Hypertension Mother Diabetes - Type 2 Paternal Grandmother Hypertension Paternal Grandmother Cancer - Ovarian Sister age 31 Hypertension Sister Relation Name Status Comments Father Maternal Grandfather Maternal Grandmother Maternal Uncle 1 Maternal Uncle 2 Mother Paternal Grandmother Sister Social History Tobacco Use Types Packs/Day Years Used Date Smoking Tobacco: Every Day Cigarettes 0.3 17.4 Started: 07/31/2007 Smokeless Tobacco: Never Alcohol Use Standard Drinks/Week Comments No 0 (1 standard drink = 0.6 oz pur e alcohol) Comments No Sex and Gender Information Value Date Recorded Sex Assigned at Not on file Legal Sex Female 4:34 PM CDT Gender Identity Not on file Sexual Orientation Not on file Last Filed Vital Signs Vital Sign Reading Time Taken Comments Blood Pressure 115/62 10/25/2017 12:49 PM CDT Pulse 93 10/25/2017 12:49 PM CDT Temperature - - Respiratory Rate - - Oxygen Saturation - - Inhaled Oxygen Concentration - - Weight 91 kg (200 lb 9.6 oz) 10/25/2017 12:49 PM CDT Height 162.6 cm (5' 4) 09/06/2017 10:52 AM ROOFER ASSISTANT Body Mass Index 34.43 09/06/2017 10:52 AM ROOFER ASSISTANT Plan of Treatment Health Maintenance Due Date Last Done Comments HIV SCREENING 2003 HEPATITIS C SCREENING 06/15/2006 DTAP/TDAP/TD VACCINES (1 - Tdap) 2007 HEPATITIS B VACCINE (1 of 3 - 19+ 3-dose series) 2007 COVID-19 VACCINE (1 - 2023-2 5 season) 2024 DEPRESSION SCREENING 07/31/2024 INFLUENZA VACCINE (Season Ended) 2025 ZOSTER VACCINE (1 of 2) 2038 HIB VACCINE Aged Out No longer eligi ble based on patient's age to complete this topic HPV VACCINE Aged Out No longer eligi ble based on patient's age to complete this topic MENINGOCOCCAL (Group B) VACC INE SHARED DECISION-MAKING Aged Out No longer eligibl e based on patient's age to complete this topic MENINGOCOCCAL GROUPS A/C/Y/W VACCINE Aged Out No longer eligible b ased on patient's age to complete this topic PNEUMOCOCCAL VACCINE Aged Out No long er eligible based on patient's age to complete this topic Insurance [place]ICA[place] - [place] [place] [address] Care Teams Technical Sales Representatives Relationship Specialty Start Date End Date Marianne Castrejon PA-C [address] [place] [phone] PCP - General 02/20/20
--- OUTSIDE RECORDS SUMMARY | 2025-01-05 06:05 | XMS_ITS | Referral Summary ---
Author Organization [facility] Address [address] [place] [address] Care Team Providers Care Research And Development Chemist Name Role Phone Unknown, Notinfile Primary Care Provider Unavail able Allergies Active Allergy Reactions Criticality Noted Date Comments Latex Itching High 09/19/2022 Penicillins Unknown 12/29/2018 Shellfish Other (See comments) High 04/16/2021 Tramadol Vomiting Low 12/29/2018 Medications EPINEPHrine 0.3 mg/0.3 mL auto-injection syringe Active fluticasone propionate (FLOVENT HFA) 44 mcg/actuation inhalerIndication s:asthma Inhale 1 puff 2 (two) times a day Rinse mouth with water after use. Do not swallow. 1 each 5 08/22/19 Active Additional Information Patient not taking.Reported on 04/06/2023 montelukast (SINGULAIR) 4 mg chewable tabletIndications :Maintenance Therapy for Asthma Take 1 tablet (4 mg total) by mouth nightly 30 tablet 08/22/19 Active Additional Information Patient not taking.Reported on 04/06/2023 alcohol swabs pads, medicatedIndicati ons:Lupus anticoagulant affecting in first trimester, antepartum Apply 1 each topically daily 30 each 08/25/19 Active Additional Information Patient not taking.Reported on 02/28/2023 albuterol HFA (PROVENTIL HFA,VENTOLIN HFA,PROAIR HFA) 90 mcg/actuation inhalerIndication s:Supervision of high-risk , first trimester,Edema during in first trimester Inhale 2 puffs every 4 (four) hours as needed for wheezing 1 each 2 12/23/19 Active Additional Information Patient not taking.Reported on 04/06/2023 lancets 33 gauge misc CHECK GLUCOSE FASTING AND ONE HOUR AFTER EACH MEAL AND NEEDED 200 each 6 02/08/20 Active OneTouch Verio Reflect Meter misc USE TO TEST BLOOD SUGAR 02/08/20 Active compress.stocking ,knee,reg,lrg miscIndications:S upervision of high-risk , third trimester Wear while working. 2 each 02/24/20 Active Additional Information Patient not taking.Reported on 02/28/2023 acetaminophen 500 mg capsuleIndication s:Pain Take 2 capsules (1,000 mg total) by mouth every 6 (six) hours as needed for pain 90 tablet 1 03/27/20 Active docusate sodium (COLACE) 100 mg capsuleIndication s:constipation,St ool Softener Take 1 capsule (100 mg total) by mouth 2 (two) times a day as needed for constipation 60 capsule 03/27/20 Active gabapentin (NEURONTIN) 100 mg capsule Take 1 capsule (100 mg total) by mouth 3 (three) times a day as needed (Incisional Pain) 30 capsule 03/27/20 Active ibuprofen (ADVIL,MOTRIN) 600 mg tabletIndications :Cramps Take 1 tablet (600 mg total) by mouth every 6 (six) hours as needed for pain 90 tablet 1 03/27/20 Active oxyCODONE (ROXICODONE) 5 mg immediate release tabletIndications :Pain Take 1 tablet (5 mg total) by mouth every 6 (six) hours as needed for pain 15 tablet 03/27/20 Active pyridoxine (vitamin B-6) 25 mg tabletIndications :Supervision of high-risk , first trimester Take 1 tablet (25 mg total) by mouth 3 (three) times a day 90 tablet 3 08/22/19 23 023 Discontin ued(Other ) Active Problems Problem Noted Date Diagnosed Date care following delivery 03/01 Overview (03/27/2023): # ID: Afebrile. No signs/symptoms of infection. #Varicella nonimmune: for pp varivax, declines, will discuss with PCP # Heme: QBL 715 mL. No symptoms acute blood loss anemia. Hgb POD1 9.4. # CV/Pulm: Vital signs stable, within normal limits. #Asthma: continue flovent and albuterol. # GI/: Tolerating PO. Voiding spontaneously. # Pain: Controlled with above regimen. 03/26: Incisional burning, Gabapentin 100 mg TID added # MOC: s/p BTL. # MOF: . Urine drug screen not indicated. Patient informed of results: N/A. # Post DVT prophylaxis: The patient has the following MAJOR risk factors none and the following MINOR risk factors BMI 30-39, delivery, and parity >/=3. enoxaparin 40 mg daily to be ordered for VTE prophylaxis after creatinine result obtained. # Disposition: Follow up task sent to [facility] scheduling pool. Desires discharge home today. 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 Not on meds. Elevated glucose tolerance test 02/23/2023 Overview (03/15/2023): Elevated 1 hour, did not undergo 3hr GTT but has been checking blood sugar. Maintaining sporadic log, mostly with range of 70-140s. Counseled on the importance of qid accu checks and weekly logs Assessment & Plan (03/08/2023 1:16 PM CDT): No log today for review but BS on meter range between 70-140. Strongly encourage qid accu checks and weekly logs for review. Trichomonal vaginitis during in second trimester 10/18/2022 Overview (02/08/2023): Diagnosed and counseled 10/18 and rx placed. Recommend she notify her partner. Support provided. Encouraged she establish with a therapist [x] EZEQUIEL- sent 12/01/2022 - negative 02/07/2023- Negative Methicillin resistant Staphylococcus aureus infe ction 10/17/2022 Depression with anxiety 10/17/2022 Overview (10/17/2022): Reports a long history. Currently not on meds and not seeing a therapist. Encourage she consider both. Will continue to monitor symptoms closely Assessment & Plan (03/08/2023 1:15 PM CDT): Recommend therapy again today. Support provided. Assessment & Plan (11/08/2022 12:11 PM CDT): Mood appears down today. Support provided. Encouraged therapy or meds. Patient continue to decline. care for patient w ith recurrent loss, first trimester 08/22/2022 Overview (03/08/2023): - H/o 4 prior consecutive first trimester losses - LA positive x1, confirmatory negative - Previously counseled and started lovenox, not taking currently Plan - routine care Tobacco smoking affecting in first tri mester 08/22/2022 Overview (09/14/2022): Previously counseled and encouraged cessation. Pt declines NRT. Marijuana use during 08/22/2022 Overview (09/14/2022): Previously counseled and encouraged cessation. Asthma affecting in third trimester Overview (03/08/2023): - Severity classification:moderate - Baseline peak flow: unknown - Current regimen: Albuterol PRN; Flovent and Singulair added 08/22 Plan [x] Referral placed for PFTs/home peak flow meter -RN has given number to schedule pulmonary appt again due to prior cancelled/NS visits History of section complicating pregnan cy 08/18/2022 Overview (01/16/2023): - uncomplicated primary low transverse in 2018 for failure to progress - op note in media tab and reviewed - s/p counseling Plan Delivery by repeat section with bilateral salpingectomy (papers signed 12/01/2022) scheduled 03/24/23 Supervision of high-risk , third trimes ter 08/18/2022 Overview (03/21/2023): [x] Full MFM Care; [x] Blue Team Referring Provider: Self Referral [] Jefe or Medicare Insurance [x] Dating Criteria: LMP 06/26/22 with CHAUNCEY 04/02/23 [x] Labs: Rh [A+], Ab [negative], Rubella [reactive], HIV [nonreactive], HepBSAg [nonreactive], RPR [nonreactive], Hep C [nonreactive], Varicella [nonreactive], GC/CT [Neg/Neg ] [x] Genetic Screening: Desires NIPT, Low risk [x] CBC/Hgb - 13.7/39.0/244 done 08/22 [x] Early 1hr GTT (if indicated) - A1c 5.5 on 08/22 [x] UCx: negative [x] Pap: 03/09/21: NILM; HPV negative, in media [x] LD ASA (if indicated) starting at 12 weeks: pt already taking 162 mg at intake [] EPDS [ ]; PNBHS referral (if indicated) 2nd Tri Labs: [x] Anatomy ultrasound: complete wnl [x] CBC: 11.0/33/251K 1hr gtt at 24-28wks: 186 RPR: NR HIV: NR--- Did not undergo 3hr GTT [] Flu Shot (Mar-Jun): [x] Tdap (27-36wks): Declined [] COVID Vaccine: 3rd Tri Labs: [x] CBC11/33/251K HIV: NR RPR: NR completed 01/16 [x] GC/CT- neagtive 02/07/2023 [x] GBS: Negative on 02/23 [x] testing:Weekly at 37 weeks for BMI Counseling [x] MOD: Desires repeat C/S, anticipate at 39w0d,scheduled for 03/24 at 11:30am with BTL letter given 01/05/2023 [x] Hibiclens: given 03/21/2023 [x] Place of delivery: [facility] [x] MOC: bilateral salpingectomy, papers signed 12/01/2022 [x] Method of feeding: considering , s/p counseling [x] Playground Monitor: [x] PP Depression Discussed: Assessment & Plan (09/19/2022 2:13 PM SUPERVISOR STAVE FINISHING): Counseled that NIPT is not for gender but rather for genetic testing. Patient voiced understanding and wants testing today. Hereditary angioedema (MFM) 08/18/2022 Overview (02/23/2023): Previously counseled Never been on disease-specific therapy due to cost. She states she is currently following with Dr. Adair at [facility], but these records are unavailable. Plan: [] allergy/Immunology consult (patient needs to call- number given once again 02/07) -Anesthesia consult scheduled 02/23 Tobacco dependence syndrome 04/16/2021 Snoring 04/16/2021 Shortness of breath 04/16/2021 History of substance abuse 04/16/2021 Cannabis abuse 04/16/2021 Cellulitis 09/08/2020 Polycystic ovary syndrome 02/24/2020 Migraine 02/24/2020 Aching pain 02/24/2020 Impaired glucose tolerance 04/18/2019 Breech presentation 03/06/2018 Heterozygous for MTHFR gene mutation 12/06/2017 Gastroesophageal reflux disease 10/24/2017 Overview (01/16/2023): - failed pepcid Plan - continue prilosec Urogenital infection by trichomonas vaginalis Recurrent loss, an tepartum condition or complication 09/05/2017 Depression affecting 09/05/2017 Hereditary angioedema 08/15/2017 Smoker 08/08/2017 Anxiety 08/08/2017 Obesity affecting in third trimester 0 03/17/2017 Overview (01/16/2023): BMI: 36 Previously counseled Plan [x] Early GTT- A1c ordered with NOB labs - 5.5 [x] Specialized anatomy ultrasound- wnl - Serial growth ultrasounds q4 weeks starting at 24 weeks - Weekly testing starting at 37 weeks given BMI of 35-39.9 Reported Thyroid dysfunction in 2016 Overview (01/16/2023): - thyroid dysfunction per patient report - first trimester TSH within normal limits Plan - routine care Recurrent loss 12/19/2014 Resolved Problems Problem Noted Date Diagnosed Date Resolved Date Subchorionic hemorrhage 08/22/2022 04/1 07/2022 Overview (09/14/2022): Seen on 08/22 US , 2.8 x 0.8 x 1.6 cm Previously counseled Dental pain in 08/22/202203/2023 Overview (02/28/2023): Recently treated for wisdom tooth infection x3 with amoxicillin. States she has been unable to find a provider who takes her insurance. We reviewed that the second trimester is the ideal time for surgery should she need removal. 02/28/23 - readdressed these recommendations today. No e/o infection on exam. Also provided with list of dentists today. Plan: [ ] OMFS referral placed- will provide pt with number to call and schedule Recommend she call her insurance and find a dentist and oral surgeon in network Urinary tract infection affecting 08/22/2022 11/08/2022 Overview (11/08/2022): Dx at urgent care at time of learning of . S/p abx. Plan: [x] EZEQUIEL on 09/19/2022- negative Palpitations 04/16/2021 02/23/2023 Candidiasis of vagina 09/13/20172022 Immunizations Immunization Administration Dates Next Due DTP 09/20/1993 Influenza, Quadrivalent, Spl it, Intramuscular 05/19/2016 MMR 09/20/1993 OPV 09/20/1993 Tdap 01/04/2018 Varicella 03/25/2023(Deferred: Patient Refused - VIS info sheet given for reference. pt declines vaccine.) Social History Tobacco Use Types Packs/Day Years Used Date Smoking Tobacco: Every Day Smokeless Tobacco: Never Tobacco Cessation:Ready to Q uit: Not Asked; Counseling Given: Not Answered Alcohol Use Standard Drinks/Week Comments Not Currently 0 (1 standard drink = 0.6 oz pur e alcohol) Social Connection and Isolat ion Panel [NHANES] Answer Date Recorded In a typical week, how many times do you talk on the phone with family, friends, or neighbors? More than three times a week 03/25/2023 How often do you get togethe r with friends or relatives? More than three times a week 03/25/2023 How often do you attend chur ch or pentecostalism services? Never 03/25/2023 Do you belong to any clubs o r organizations such as hoahaoism groups, unions, fraternal or athletic groups, or school groups? No 03/25/2023 How often do you attend meet ings of the clubs or organizations you belong to? Never 03/25/2023 Are you , , di vorced, , never , or living with a partner? Never 03/25/2023 AUDIT-C Answer Date Recorded Frequency of Alcohol Consumption Never 12/29/2018 Average Number of Drinks Not on file 019 Frequency of Binge Drinking Not on file 07/2018 Overall Financial Resource Strain (CARDIA) Answe r Date Recorded How hard is it for you to pa y for the very basics like food, housing, medical care, and heating? Not hard at all 03/25/2023 Hunger Vital Sign Answer Date Recorded Within the past 12 months, y ou worried that your food would run out before you got the money to buy more. Never true 03/25/20 23 Within the past 12 months, t he food you bought just didn't last and you didn't have money to get more. Never true 03/25/2023 PRAPARE - Transportation Answer Date Re corded In the past 12 months, has l ack of transportation kept you from medical appointments or from getting medications? No 03/01 In the past 12 months, has l ack of transportation kept you from meetings, work, or from getting things needed for daily living? No 03/25/2023 Housing Stability Vital Sign Answer Jarrell e Recorded In the last 12 months, was t here a time when you were not able to pay the mortgage or rent on time? No 03/25/2023 In the last 12 months, how many places have you lived? 1 03/25/2023 In the last 12 months, was t here a time when you did not have a steady place to sleep or slept in a retirement (including now)? No 03/25/2023 [place] Depression Scale Answer Date Recorded [place] Depression Scale Total 3 04/06/2023 The thought of harming myself has occurred to me . Never 04/06/2023 Personal Safety Answer Date Recorded Have you ever been in or are you currently in a harmful physical or emotional relationship or is someone making you feel afraid or unsafe? Denies 03/24/2023 Comments No Sex and Gender Information Value Date Recorded Sex Assigned at Not on file Legal Sex Female 7:17 AM CDT Gender Identity Not on file Sexual Orientation Not on file Last Filed Vital Signs Vital Sign Reading Time Taken Comments Blood Pressure 125/77 04/06/2023 10:17 AM CDT Pulse 62 04/06/2023 10:17 AM CDT Temperature 36.7 C (98.1 F) 03/27/2023 7:15 AM CDT Respiratory Rate 18 03/27/2023 7:16 AM CDT Oxygen Saturation 97% 04/06/2023 10:17 AM CDT Inhaled Oxygen Concentration - - Weight 94.8 kg (209 lb) 04/06/2023 10:17 AM CDT Height 163.8 cm (5' 4.5) 04/06/2023 10:17 AM CD T Body Mass Index 35.32 04/06/2023 10:17 AM CDT Plan of Treatment Not on file Procedures Procedure Name Priority Date/Time Associated Diagnosis Comments HEPATITIS C ANTIBODY Routine 08/22/2022 1:27 PM SUPERVISOR STAVE FINISHING Supervision of high-risk , first trimester from Last 3 Months or Most Recently Relevant to Health Maintenance Results * Hepatitis C antibody (08/22/2022 1:27 PM SUPERVISOR STAVE FINISHING) Hep C Ab Nonreactive Nonreactive [facility] Comment:Antibodies to HCV no t detected. Does NOT exclude the possibility of recent exposure to HCV. Current interpretive data was last revised on 22 Blood 08/22/2022 1:27 PM SUPERVISOR STAVE FINISHING 08/22/2022 1:42 PM SUPERVISOR STAVE FINISHING Nell Stevens MD LAB MICROBIOLOGY - NERAL ORDERABLES Final Result [facility] Department [place] [address] from Last 3 Months or Most Recently Relevant to Health Maintenance Insurance [facility] Advance Directives For more information, please contact: [phone] * Full Code (Latest Code Status on File) Date Activated Date Inactivated Comments 03/24/2023 3:40 PM 03/27/2023 7:48 PM * Full Code Date Activated Date Inactivated Comments 03/24/2023 10:13 AM 03/24/2023 3:40 PM Full CPR in case of cardiopulmonary arrest Care Teams Research And Development Chemist Relationship Specialty Start Date End Date Unknown, Notinfile PCP - General 11/02/22
--- OUTSIDE RECORDS SUMMARY | 2025-01-05 06:05 | XMS_ITS | Clinical Summary ---
Author Organization [facility] Address [address] [place] [address] Care Team Providers Care Livestock Inspector Name Role Phone Unknown, Notinfile Primary Care [...] # Disposition: Follow up task sent to [facility] scheduling pool. Desires discharge home today. #MDD: [...] Hibiclens: given 03/21/2023 [x] Place of delivery: [facility] [x] MOC: bilateral salpingectomy, papers signed 12/01/2022 [x] Method of feeding: considering , s/p counseling [x] Returns Clerk: [x] PP Depression Discussed: Assessment & Plan (09/19/2022 2:13 PM AESTHETICS INSTRUCTOR): Counseled that NIPT is not for gender but rather for genetic testing. Patient voiced understanding and wants testing today. Hereditary angioedema (MFM) 08/18/2022 Overview (02/23/2023): Previously counseled Never been on disease-specific therapy due to cost. She states she is currently following with Dr. Adair at [facility], but these records are unavailable. Plan: [] [...] sheet given for reference. pt declines vaccine.) Surgical History Surgery Date Site/Laterality Comments SECTION Medical History Medical History Date Comments Asthma Hereditary angioedema (HCC) Candidiasis of vagina 09/13/2017 Family History Medical History Relation Name Comments Diabetes Father Family history of diabetes mellitus - (Added by TW Conv) Hyperlipidemia Father High choleste rol - (Added by TW Conv)/High triglycerides - (Added by TW Conv) Hypertension Father Family history of hypertension - (Added by TW Conv) Diabetes Mother Family history of diabetes mellitus - (Added by TW Conv) Hypertension Mother Family history of hypertension - (Added by TW Conv) Ovarian cancer Mother Family histor y of malignant neoplasm of ovary - (Added by TW Conv) Stroke Mother Family history of cerebrovascular accident (CVA) - (Added by TW Conv) Diabetes Sister 1 Family history of diabetes mellitus - (Added by TW Conv) Hypertension Sister 2 Family history of hypertension - (Added by TW Conv) Relation Name Status Comments Father Mother Sister 1 Sister 2 Social History Tobacco Use Types Packs/Day Years [...] often do you attend chur ch or yazdanism services? Never 03/25/2023 Do you belong to any clubs o r organizations such as hindu groups, unions, fraternal or athletic groups, or [...] place to sleep or slept in a chcf (including now)? No 03/25/2023 [place] Depression Scale Answer Date Recorded [place] Depression Scale Total 3 04/06/2023 The thought [...] on file Sexual Orientation Not on file Obstetrics History Para Term AB IAB SAB Ectopic Multiple Livin g Live Births 7 3 3 4 4 0 3 3 Date Outcome GA Total Labor Labor/2nd/3rd Weight Sex Type Anes PTL Lucy A1 A5 Name Clin 2009 Term 39w 0d 3.26 kg (7 lb 3 oz) M Vag-S pont Epidur al Livin g 2014 SAB 5w3 d 2015 SAB 6w0 d 2015 SAB 7w2 d 2016 SAB 8w0 d 2017 Term 39w 4d 3.317 kg (7 lb 5 oz) M CS-LT ranv Spinal Livin g 2022 Term 39w 2d 0h 01m 0h 01m 3.54 kg (7 lb 12.9 oz) F C-Sec tion Combin ed Spinal /Epidu ral N Livin g 8 9 ADONISLA ND,GI RLTIF Neo Carranza MD Complications:None Delivery Location:[facility] Main C ampus ([facility] L AND D PROCEDURE) Last Filed Vital Signs Vital Sign Reading [...] 04/06/2023 10:17 AM CDT Plan of Treatment Health Maintenance Due Date Last Done Comments Cervical Cancer Screening 1988 Varicella Vaccines (1 of 2 - 13+ 2-dose series) 2001 Hepatitis B Screening 2006 Regular Well Visit/Exam 18-64 2006 Pneumococcal vaccine <65 (1 of 2 - PCV) 2007 Depression Screening 04/06/2024 04/06/2023 Influenza Vaccine (Season Ended) 2025 05/19/2016 DTaP/Tdap/Td Vaccine (3 - Td or Tdap) 01/05/2028 01/04/2018, 09/20/1993 Hepatitis C Screening Completed 08/22/2022 HPV Vaccines Aged Out No longer eligi ble based on patient's age to complete this topic Procedures Procedure Name Priority Date/Time Associated Diagnosis Comments HEPATITIS C ANTIBODY Routine 08/22/2022 1:27 PM AESTHETICS INSTRUCTOR Supervision of high-risk , first trimester from Last 3 Months or Most Recently Relevant to Health Maintenance Results * Hepatitis C antibody (08/22/2022 1:27 PM AESTHETICS INSTRUCTOR) Hep C Ab Nonreactive Nonreactive [facility] Comment:Antibodies to HCV no t detected. Does NOT exclude the possibility of recent exposure to HCV. Current interpretive data was last revised on 22 Blood 08/22/2022 1:27 PM AESTHETICS INSTRUCTOR 08/22/2022 1:42 PM AESTHETICS INSTRUCTOR Nell Stevens MD LAB MICROBIOLOGY - GE NERAL ORDERABLES Final Result [facility] Department [place] [address] from Last 3 Months or Most Recently Relevant to Health Maintenance Insurance [facility] Advance Directives For more information, please contact: [phone] * Full Code (Latest Code Status on File) Date Activated Date Inactivated Comments 03/24/2023 3:40 PM 03/27/2023 7:48 PM * Full Code Date Activated Date Inactivated Comments 03/24/2023 10:13 AM 03/24/2023 3:40 PM Full CPR in case of cardiopulmonary arrest Care Teams Livestock Inspector Relationship Specialty Start Date End Date Unknown, Notinfile PCP - General 11/02/22
[2025-01-05 06:11] VITALS: BP 143/85; PULSE 99; RESP 20; TEMP 36.3; O2SAT 99
[2025-01-05 06:22] VITALS: O2SAT 97
[2025-01-05 06:24] VITALS: BP 134/83; PULSE 108; RESP 16; O2SAT 98
--- OUTSIDE RECORDS SUMMARY | 2025-01-05 07:34 | XMS_ITS | Clinical Summary ---
Author Organization [facility] Address [address] [place] [address] Care Team Providers Care Quality Controller Name Role Phone Unknown, Notinfile Primary Care [...] # Disposition: Follow up task sent to [facility] scheduling pool. Desires discharge home today. [...] Hibiclens: given 03/21/2023 [x] Place of delivery: [facility] [x] MOC: bilateral salpingectomy, papers signed 12/01/2022 [x] Method of feeding: considering , s/p counseling [x] Php Website Developer: [x] PP Depression Discussed: Assessment & Plan (09/19/2022 2:13 PM DRESS CAP MAKER): Counseled that NIPT is not for gender but rather for genetic testing. Patient voiced understanding and wants testing today. Hereditary angioedema (MFM) 08/18/2022 Overview (02/23/2023): Previously counseled Never been on disease-specific therapy due to cost. She states she is currently following with Dr. Adair at [facility], but these records are unavailable. Plan: [...] often do you attend chur ch or scientology services? Never 03/25/2023 Do you belong to any clubs o r organizations such as yazidi groups, unions, fraternal or athletic groups, or [...] in a retirement (including now)? No 03/25/2023 [place] Depression Scale Answer Date Recorded [place] Depression Scale Total 3 04/06/2023 The thought [...] ND,GI RLTIF Neo Carranza MD Complications:None Delivery Location:[facility] Main C ampus ([facility] L AND D PROCEDURE) Last Filed Vital [...] HEPATITIS C ANTIBODY Routine 08/22/2022 1:27 PM DRESS CAP MAKER Supervision of high-risk , first trimester from Last 3 Months or Most Recently Relevant to Health Maintenance Results * Hepatitis C antibody (08/22/2022 1:27 PM DRESS CAP MAKER) Hep C Ab Nonreactive Nonreactive [facility] Comment:Antibodies to HCV no t detected. Does NOT exclude the possibility of recent exposure to HCV. Current interpretive data was last revised on 22 Blood 08/22/2022 1:27 PM DRESS CAP MAKER 08/22/2022 1:42 PM DRESS CAP MAKER Nell Stevens MD LAB MICROBIOLOGY - GE NERAL ORDERABLES Final Result [facility] Department [place] [address] from Last 3 Months or Most Recently Relevant to Health Maintenance Insurance [facility] Advance Directives For more information, please contact: [phone] * Full Code (Latest Code Status on File) Date Activated Date Inactivated Comments 03/24/2023 3:40 PM 03/27/2023 7:48 PM * Full Code Date Activated Date Inactivated Comments 03/24/2023 10:13 AM 03/24/2023 3:40 PM Full CPR in case of cardiopulmonary arrest Care Teams Quality Controller Relationship Specialty Start Date End Date Unknown, Notinfile PCP - General 11/02/22
--- OUTSIDE RECORDS SUMMARY | 2025-01-05 07:34 | XMS_ITS | Clinical Summary ---
Author Organization [facility] Address [address] [place] [address] Care Team Providers Care Traveling Phlebotomist Name Role Phone Marianne Castrejon PA-C Primary Care Provider + Source Comments [facility],non-owned Affiliates and Associated Physician Practices is amultiple site organization consisting of ambulatory clinics and hospital sitesin [place], [place], [place] and [place]. This disclosure is being madepursuant to the Care Everywhere program and may not contain all information available regarding this patient. Last updated 18.[facility] Allergies Active Allergy Reactions Criticality Noted Date [...] 162.6 cm (5' 4) 09/06/2017 10:52 AM COLD WORKING INSPECTOR Body Mass Index 34.43 09/06/2017 10:52 AM COLD WORKING INSPECTOR Plan of Treatment Health Maintenance Due Date [...] complete this topic Insurance MED[place] [address] [address] Care Teams Traveling Phlebotomist Relationship Specialty Start Date End Date Marianne Castrejon PA-C [address] [place] [id number] PCP - General 02/20/20
--- OUTSIDE RECORDS SUMMARY | 2025-01-05 07:34 | XMS_ITS | CONTINUITY OF CARE DOCUMENT ---
Author Name ranjith claulna Address Unknown Organization [facility] Address [address] [place] [address] Phone [phone] Care Team Providers Care Flat Ironer Name Role Phone Mana MENDEZ, Cierra Unavailable [phone] RICHARD CHAHAL MD Unavailable [phone] RICHARD CHAHAL MD Unavailable [phone] PROBLEMS Condition Status Date Provider Notes Screening active Nicci Wells TELEPHONE OPERATORS SUPERVISOR Palpitations active Nicci Wells TELEPHONE OPERATORS SUPERVISOR Chest pain, intermittent active Nicci reese TELEPHONE OPERATORS SUPERVISOR Shortness of breath active Nicci Wells TELEPHONE OPERATORS SUPERVISOR History of methamphetamine abuse active Gricelda Wells TELEPHONE OPERATORS SUPERVISOR Hereditary angioedema active Nicci beasley TELEPHONE OPERATORS SUPERVISOR Tobacco abuse active Nicci Wells TELEPHONE OPERATORS SUPERVISOR Obesity active Nicci Wells TELEPHONE OPERATORS SUPERVISOR Marijuana use active Nicci Wells TELEPHONE OPERATORS SUPERVISOR Snoring active Nicci Wells TELEPHONE OPERATORS SUPERVISOR ? Sleep apnea active Nicci Wells TELEPHONE OPERATORS SUPERVISOR Vitamin D deficiency active Nicci tello TELEPHONE OPERATORS SUPERVISOR Vitamin B12 deficiency active Nicci landry TELEPHONE OPERATORS SUPERVISOR Polycystic ovary syndrome active Nicci carver TELEPHONE OPERATORS SUPERVISOR Acid reflux active Nicci Wells TELEPHONE OPERATORS SUPERVISOR ENCOUNTERS Date Type Provider Location Encounter Diag nosis - In-person encounter Office Visit Cierra Adair MD [facility] ScreeningPalpitationsChest pain, intermittentShortness of breathHistory of methamphetamine abuseHereditary angioedemaTobacco abuseObesityMarijuana useSnoring? Sleep apneaVitamin D deficiencyVitamin B12 deficiencyPolycystic ovary syndromeAcid reflux VITAL SIGNS Date Observation Value Provider blood pressure, diastolic 80 mm[Hg] Sharon nkLogic blood pressure, systolic 122 mm[Hg] Jodi kLogic Body Mass Index (Ratio) 39.82 kg/m2 Taew on Don blood pressure, cuff size large [facility], diastolic 80 mm[Hg] Ke [facility]ri [facility] blood pressure, systolic 122 mm[Hg] Renea lucinda Abdullahi oxygen saturation, oximetry 96 % Cassidy Abdullahi respiratory rate E&M 16 /min Cassidy oviedo pulse rate 77 /min Cassidy Phipps lder weight E&M 232 [lb_av] Cassidy Moise lder height E&M 64 [in_i] Cassidy Moise [facility] ALLERGIES Allergy Name Onset Date Reaction Criticality [...] iron binding capacity, unsaturated 230 ug/dL LinkLogic 709-056 3317/09/1 8 iron binding capacity, total 309 ug/dL [employer] 340-234 5604/09/1 8 free thyroxine index 1.5 LinkLogic 1.2-4.9 [...] High 8 cholesterol, serum 179 mg/dL [employer] 319-228 8895/09/1 8 platelet count 261 X10E3/UL LinkLog 756-633 3796/09/1 8 red blood cell distribution width 13.3 [...] 3.5-5.2 8 sodium, serum 143 mmol/L LinkLog[facility] 520-459 6068/09/1 8 urea nitrogen/creatinine ratio, serum 26 LinkLogic [...] Payer name Policy type / Coverage type [place] red democr[employer] [place] MEDICA[employer] (2) Medicaid [id number] ADVANCE DIRECTIVES Name Date DISCUSSED - NO DECISION MADE TREATMENT PLAN Date Name Performer [id number],C,r ecommend following with GI. will r/o cardiac cause including ECHO, routine stress, encouraged to not eat later in evening, elevate head of bed, OTC antiacids, avoid spicy/fatty/greasy foods, cut down smoking. Nicci Fenjl MUNGUIA [id number],C,follows with DIRECTOR [employer] Nicci Fenjl MUNGUIA [id number],C,check labs Je marisolkera Fishjl TELEPHONE OPERATORS SUPERVISOR [id number],C,[facility] TELEPHONE OPERATORS SUPERVISOR [id number],C,BMI 39.[address] [facility] Abejl MUNGUIA [id number],C,o besity and snoring. home sleep study Nicci Fenjl MUNGUIA [id number],C,c urrent smoker 1ppd/18yrs P FTs, Cxr, labs Nicci Fenjl MUNGUIA [id number],C,reports only marijuana use now Nicci Fenjl MUNGUIA [id number],C,PFTs, ECHO, h ome sleep study, labs Nicci Fenjl MUNGUIA [id number],C,w ill check 2 week telesentry, ECHO, labs, home stleep study, PFTs Nicci Fenjl MUNGUIA [id number],C,i ntermittent CP (see HPI), EKG with nonspecific [...] smoking. Nicci Wells NP Electrophysiology:follows with O B/GAME AGENT Nicci Wells NP Electrophysiology:check labs Gricelda Wells [...] BINDING CAPACITY Sleep Study Home DLCO - 25421 FRC - 40206 FVC - 85816 MAGNESIUM HEMOGLOBIN A1c CBC (H/H, RBC, INDIC [...]
--- OUTSIDE RECORDS SUMMARY | 2025-01-05 07:34 | XMS_ITS | Referral Summary ---
Author Organization [facility] Address [address] [place] [address] Care Team Providers Care Heavy Truck Driver Name Role Phone Unknown, Notinfile Primary Care [...] # Disposition: Follow up task sent to [facility] scheduling pool. Desires discharge home [...] Hibiclens: given 03/21/2023 [x] Place of delivery: [facility] [x] MOC: bilateral salpingectomy, papers signed 12/01/2022 [x] Method of feeding: considering , s/p counseling [x] Senior Sourcing Manager: [x] PP Depression Discussed: Assessment & Plan (09/19/2022 2:13 PM SPICE ROOM WORKER): Counseled that NIPT is not for gender but rather for genetic testing. Patient voiced understanding and wants testing today. Hereditary angioedema (MFM) 08/18/2022 Overview (02/23/2023): Previously counseled Never been on disease-specific therapy due to cost. She states she is currently following with Dr. Adair at [facility], but these records are unavailable. Plan: [] [...] often do you attend chur ch or sikhism services? Never 03/25/2023 Do you belong to any clubs o r organizations such as yarsanism groups, unions, fraternal or athletic groups, or [...] place to sleep or slept in a care home (including now)? No 03/25/2023 Lorane Depression Scale Answer Date Recorded Lorane Depression Scale Total 3 04/06/2023 The thought [...] HEPATITIS C ANTIBODY Routine 08/22/2022 1:27 PM SPICE ROOM WORKER Supervision of high-risk , first trimester from Last 3 Months or Most Recently Relevant to Health Maintenance Results * Hepatitis C antibody (08/22/2022 1:27 PM SPICE ROOM WORKER) Hep C Ab Nonreactive Nonreactive [facility] Comment:Antibodies to HCV no t detected. Does NOT exclude the possibility of recent exposure to HCV. Current interpretive data was last revised on 22 Blood 08/22/2022 1:27 PM SPICE ROOM WORKER 08/22/2022 1:42 PM SPICE ROOM WORKER Nell Stevens MD LAB MICROBIOLOGY - NERAL ORDERABLES Final Result [facility] [address] [facility] Department [place] [address] from Last 3 Months or Most Recently Relevant to Health Maintenance Insurance [facility] Advance Directives For more information, please contact: [phone] * Full Code (Latest Code Status on File) Date Activated Date Inactivated Comments 03/24/2023 3:40 PM 03/27/2023 7:48 PM * Full Code Date Activated Date Inactivated Comments 03/24/2023 10:13 AM 03/24/2023 3:40 PM Full CPR in case of cardiopulmonary arrest Care Teams Heavy Truck Driver Relationship Specialty Start Date End Date Unknown, Notinfile PCP - General 11/02/22
[2025-01-05 07:45] VITALS: BP 123/95; PULSE 97; RESP 19; O2SAT 97
[2025-01-05] MEDS: KETOROLAC 30 MG/ML VIAL (*BKC) IV PUSH (08:11)
[2025-01-05 08:12] LABS: Basophils Absolute Auto 0.1 K/mm3 (0.0-0.1); Basophils Percent Auto 0.6 % (0.2-1.2); Eosinophils Absolute Auto 0.6 K/mm3 (0-0.3); Eosinophils Percent Auto 4.9 % (0-4.4); Hematocrit 38.1 % (37.0-47.0); Hemoglobin 12.6 g/dL (12.0-15.0); Immature Granulocyte Absolute 0.04 K/mm3 (0.00-0.031); Immature Granulocyte Percent A 0.3 % (0-0.5); Lymphocytes Absolute Auto 2.07 K/mm3 (0.9-3.2); Lymphocytes Percent Auto 17.6 % (18.3-44.2); Mean Corpuscular HGB Conc 33.1 g/dl (32-36); Mean Corpuscular Hemoglobin 28.4 pg (26-34); Mean Corpuscular Volume 85.8 fl (80-100); Mean Platelet Volume 9.8 fl (7.4-10.4); Monocytes Absolute Auto 0.7 K/mm3 (0.1-0.6); Monocytes Percent Auto 6.2 % (2.6-8.5); Neutrophils Absolute Auto 8.3 K/mm3 (1.3-6.7); Neutrophils Percent Auto 70.4 % (45.5-73.1); Platelet Count Result 270 k/mm3 (150-375); Red Blood Count 4.44 M/mm3 (4.2-5.4); White Blood Count 11.8 K/mm3 (4.5-10.0)
[2025-01-05 08:26] LABS: Alanine Aminotransferase 16 U/L (6-35); Alkaline Phosphatase 73 U/L (38-126); Anion Gap 8 mmol/L (4-12); Aspartate Amino Transferase 21 U/L (14-36); Bilirubin,Total 0.4 mg/dL (0.2-1.3); Blood Urea Nitrogen 19 mg/dL (7-17); Calcium 9.2 mg/dL (8.4-10.2); Carbon Dioxide 23 mmol/L (22-30); Chloride 106 mmol/L (98-107); Estimated CRCL calculation 116 ml/min; Estimated Glomerular Filt Rate > 60; Glucose 109 mg/dL (65-110); Potassium 4.2 mmol/L (3.4-5.0); Sodium 137 mmol/L (137-145); Total Protein 7.3 g/dL (6.3-8.2)
[2025-01-05 08:38] LABS: NT Pro B Type Natriuretic Pept 55 pg/mL (19.9-100); Troponin I < 0.012 ng/mL (0.000-0.034)
[2025-01-05 09:07] LABS: INR 1.1; Prothrombin Time 14.4 Seconds (11.1-14.7)
[2025-01-05 09:08] LABS: Partial Thromboplastin Time 31.3 Seconds (22.3-36.8)
--- NOTE | 2025-01-05 09:16 | ED_ITS ---
HPI - General Adult General Chief complaint: Anxiety Stated complaint: Chest heaviness, SOB Time Seen by Provider: 01/05/25 07:06 History of Present Illness HPI narrative: Patient is a 34-year-old female who presents ER with chest heaviness and shortness of breath. Has had a lot of increased stress recently in her personal life. She was make sure she is okay. 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 No hemoptysis. No fevers or chills. No productive cough. No alleviating factors. Related Data Allergies Allergy/AdvReac Type Severity Reaction Status Date / Time No Known Allergies Allergy Verified 01/05/25 06:14 Review of Systems 2 Review of Systems: All systems reviewed & are unremarkable except as noted in HPI and below Constitutional: Constitutional: Reports no additional constitutional complaints ENT: Reports system reviewed and no additional complaints, except as documented Cardiovascular: Cardiovascular: Reports no additional cardiovascular complaints Respiratory: Respiratory: Reports no additional respiratory complaints Gastrointestinal: Gastrointestinal: Reports no additional gastrointestinal complaints Musculoskeletal: Musculoskeletal: Reports no additional musculoskeletal complaints PMFSH Past Medical History Medical History Anxiety Asthma History of angioedema Surgical History Surgical History H/O section Social History Social History Smoking status: Current every day smoker Alcohol intake: current Substance use: current Substance use type: unknown Gender identity (if verbalized by the patient): Female Exam 2 Narrative: GENERAL: Well-appearing, well-nourished, and in no acute distress. HEAD: Normocephalic, atraumatic. ENT: Mucous membranes moist. CHEST: Clear to auscultation. No respiratory distress. HEART: Regular rate and rhythm. Normal peripheral pulses. ABDOMEN: Soft, nontender, nondistended. EXTREMITIES: Normal range of motion. +1 edema. SKIN: Warm, dry, no rash. NEURO: Alert and oriented x3. PSYCH: Normal mood and affect. Course Course Emergency Course: Unremarkable evaluation. Appropriate for discharge home. Vital Signs Vital signs: Vital Signs Temperature 97.4 F L 01/05/25 06:11 Pulse Rate 99 01/05/25 06:11 Respiratory Rate 20 01/05/25 06:11 Blood Pressure 143/85 H 01/05/25 06:11 Pulse Oximetry 99 01/05/25 06:11 Oxygen Delivery Room Air 01/05/25 06:11 Temperature 97.4 F L 01/05/25 06:11 Pulse Rate 97 01/05/25 07:45 Respiratory Rate 19 01/05/25 07:45 Blood Pressure 123/95 H 01/05/25 07:45 Pulse Oximetry 97 01/05/25 07:45 Oxygen Delivery Room Air 01/05/25 06:22 Medical Decision Making Vital Signs Vital Signs: Vital Signs Temperature 97.4 F L 01/05/25 06:11 Pulse Rate 99 01/05/25 06:11 Respiratory Rate 20 01/05/25 06:11 Blood Pressure 143/85 H 01/05/25 06:11 Pulse Oximetry 99 01/05/25 06:11 Oxygen Delivery Room Air 01/05/25 06:11 Temperature 97.4 F L 01/05/25 06:11 Pulse Rate 97 01/05/25 07:45 Respiratory Rate 19 01/05/25 07:45 Blood Pressure 123/95 H 01/05/25 07:45 Pulse Oximetry 97 01/05/25 07:45 Oxygen Delivery Room Air 01/05/25 06:22 Lab Data 01/05/25 08:06 01/05/25 08:06 Labs: Lab Results 01/05/25 01/05/25 Range/Units 08:06 08:06 WBC 11.8 H (4.5-10.0) K/mm3 RBC 4.44 (4.2-5.4) M/mm3 Hgb 12.6 (12.0-15.0) g/dL Hct 38.1 (37.0-47.0) % MCV 85.8 (80-100) fl MCH 28.4 (26-34) pg MCHC 33.1 (32-36) g/dl RDW 14.0 (11.5-14.5) % Plt Count 270 (150-375) k/mm3 MPV 9.8 (7.4-10.4) fl Immature Gran % (Auto) 0.3 (0-0.5) % Neut % (Auto) 70.4 (45.5-73.1) % Lymph % (Auto) 17.6 L (18.3-44.2) % Esmeralda % (Auto) 6.2 (2.6-8.5) % Eos % (Auto) 4.9 H (0-4.4) % Baso % (Auto) 0.6 (0.2-1.2) % Lymph # (Auto) 2.07 (0.9-3.2) K/mm3 Esmeralda # (Auto) 0.7 H (0.1-0.6) K/mm3 Eos # (Auto) 0.6 H (0-0.3) K/mm3 Baso # (Auto) 0.1 (0.0-0.1) K/mm3 Abs Immat Gran (auto) 0.04 H (0.00-0.031) K/mm3 Absolute Neuts (auto) 8.3 H (1.3-6.7) K/mm3 Absolute Nucleated RBC 0.000 (0.0-0.012) K/mm3 Nucleated RBC % 0.0 (0.0-0.2) % PT 14.4 (11.1-14.7) Seconds INR 1.1 APTT 31.3 (22.3-36.8) Seconds Sodium 137 (137-145) mmol/L Potassium 4.2 (3.4-5.0) mmol/L Chloride 106 (98-107) mmol/L Carbon Dioxide 23 (22-30) mmol/L Anion Gap 8 (4-12) mmol/L BUN 19 H (7-17) mg/dL Creatinine 0.70 (0.7-1.0) mg/dL Estim Creat Clear Calc 116 ml/min Estimated GFR > 60 (59 - ) Glucose 109 (65-110) mg/dL Calcium 9.2 (8.4-10.2) mg/dL Total Bilirubin 0.4 (0.2-1.3) mg/dL AST 21 (14-36) U/L ALT 16 (6-35) U/L Alkaline Phosphatase 73 (38-126) U/L Troponin I < 0.012 Cancelled (0.000-0.034) ng/mL NT-Pro-B Natriuret Pep 55 (19.9-100) pg/mL Total Protein 7.3 (6.3-8.2) g/dL Albumin 4.0 (3.5-5.1) g/dL Imaging Data Radiologist's impression: ITS Impressions Chest X-Ray 01/05/25 07:51 Impression: Normal chest. Discharge Plan Discharge Clinical Impression: Leg edema, Pleurisy, Anxiety Patient Disposition: Home Condition: Stable Instructions: Pleurisy (ED), Anxiety (ED) Additional Instructions: Please return to the emergency department if you develop severe and persistent chest pain, difficulty breathing, dizziness, leg swelling or if you are coughing up blood as these can be signs of a medical emergency. Please call your doctor for a follow up appointment to determine the need for further testing. Patient Language: Maldivian Prescriptions: New naproxen 375 mg tablet 375 mg PO BID Qty: 14 0RF hydroxyzine pamoate 25 mg capsule 25 mg PO TID PRN (Reason: anxiety) Qty: 20 0RF No Action sulfamethoxazole-trimethoprim [Bactrim DS] 800-160 mg tablet 1 tablet PO Q12H 7 Days Qty: 14 0RF amoxicillin-pot clavulanate 875-125 mg tablet 1 tablet PO Q12H Qty: 14 0RF ondansetron 4 mg tablet,disintegrating 4 mg PO Q6H PRN (Reason: nausea and vomiting) Qty: 14 0RF famotidine [Pepcid] 20 mg tablet 20 mg PO DAILY Qty: 30 0RF ondansetron HCl [Zofran] 4 mg tablet 4 mg PO Q6H PRN (Reason: nausea and vomiting) Qty: 10 0RF azithromycin 500 mg tablet See Rx Instructions .ROUTE .COMPLEX Qty: 3 0RF Rx Instructions: take 500 mg today (day 1), then 250 mg for 4 days (days 2-5) Follow-up/Referrals: Parris,Frank Bar MD [Primary Care Provider] - 1 Week
== END 2025-01-05 09:33 | disposition home or self-care (01) ==
PROVIDERS: Emergency Provider Emergency Medicine; PCP Internal Medicine Gastroenterology
DX: R60.0 Localized edema (principal); R09.1 Pleurisy; F41.9 Anxiety disorder, unspecified
CPT/HCPCS: 36415; 71046; 80053; 83880; 84484; 85025; 85610; 85730; 96374; 99284; J1885